=== PATIENT | male | born 1950 | race Two or more races ===

== ENCOUNTER 2022-07-29 15:02 | Observation (INO) | payer MEDICARE, OTHER ==
[2022-07-29] MEDS ORDERED: ASPIRIN 81 MG PO STA (15:43)
[2022-07-29] MEDS ORDERED: NITROGLYCERIN SL TABS 0.4 MG TAB SUBLINGUAL STA (15:43)
--- NOTE | 2022-07-29 15:47 | ED ---
General Adult HPI - General Chief complaint: Chest Pain Stated complaint: Chest Pain Time Seen by Provider: 07/29/22 15:20 Source: patient, RN notes reviewed Mode of arrival: ambulatory Limitations: no limitations - History of Present Illness Initial comments: Patient is a pleasant 72-year-old male presenting to the emergency department with concerns with chest discomfort. Onset of symptoms was a few days ago and was intermittent. Discomfort today was more persistent. Discomfort feels like tightness and rated 7/10. No associated dyspnea. Mild nausea. No diaphoresis. Patient does have history of similar symptoms years ago with heart catheter ization with only medical management at that time. - Related Data Allergies Allergy/AdvReac Type Severity Reaction Status Date / Time No Known Allergies Allergy Verified 07/29/22 15:06 Review of Systems ROS Statement: Those systems with pertinent positive or pertinent negative responses have been documented in the HPI. ROS Other: All systems not noted in ROS Statement are negative. Constitutional: Denies: fever Eyes: Denies: eye pain ENT: Denies: ear pain Respiratory: Denies: cough Cardiovascular: Reports: chest pain Endocrine: Denies: fatigue Gastrointestinal: Denies: abdominal pain Genitourinary: Denies: dysuria Musculoskeletal: Denies: back pain Skin: Denies: rash Neurological: Denies: weakness Past Medical History Past Medical History: Coronary Artery Disease (CAD), Hyperlipidemia, Hypertension History of Any Multi-Drug Resistant Organisms: None Reported Past Surgical History: Heart Catheterization Past Psychological History: No Psychological Hx Reported Smoking Status: Current every day smoker Past Alcohol Use History: None Reported Past Drug Use History: None Reported General Exam Limitations: no limitations General appearance: alert, in no apparent distress Head exam: Present: normocephalic Eye exam: Present: normal appearance Neck exam: Present: normal inspection Respiratory exam: Present: normal lung sounds bilaterally. Absent: chest wall tenderness Cardiovascular Exam: Present: regular rate, normal rhythm, normal heart sounds Expanded Peripheral pulses: 2+: Radial (R), Radial (L), Posterior Tibialis (R), Posterior Tibialis (L) GI/Abdominal exam: Present: soft. Absent: tenderness Extremities exam: Present: normal inspection. Absent: pedal edema, calf tenderness Neurological exam: Present: alert Psychiatric exam: Present: normal affect, normal mood Skin exam: Present: normal color Course Vital Signs 07/29/22 07/29/22 15:04 15:57 Temperature 97.7 F Pulse Rate 83 Pulse Rate [ [address] ] Respiratory 20 Rate Blood Pressure 116/79 O2 Sat by Pulse 96 Oximetry EKG Findings - EKG Results: EKG: interpreted by BROCKD, sinus rhythm, normal axis, normal QRS, normal ST/T Medical Decision Making - Medical Decision Making Was pt. sent in by a medical professional or institution (, PA, TAG MARKER, urgent care, hospital, or halfway...) When possible be specific @ -No Did you speak to anyone other than the patient for history (EMS, parent, family, police, friend...)? What history was obtained from this source @ -No Did you review nursing and triage notes (agree or disagree)? Why? @ -I reviewed and agree with nursing and triage notes Were old charts reviewed (outside hosp., previous admission, EMS record, old EKG, old radiological studies, urgent care reports/EKG's, halfway records)? Report findings @ -No old charts were reviewed Differential Diagnosis (chest pain, altered mental status, abdominal pain women, abdominal pain men, vaginal bleeding, weakness, fever, dyspnea, syncope, headache, dizziness, GI bleed, back pain, seizure, CVA, palpatations, mental health)? @ -Differential Chest Pain: Stable Angina, Unstable Angina, STEMI, NSTEMI Aortic Dissection, Pneumothorax, Musculoskeletal, Esophageal Spasm GERD, Cholecystitis, Pancreatitis, Zoster, this is not meant to be an all-inclusive list. EKG interpreted by me (3pts min.). @ -As above X-rays interpreted by me (1pt min.). @ -Chest x-ray shows no acute process CT interpreted by me (1pt min.). @ -None done U/S interpreted by me (1pt. min.). @ -None done What testing was considered but not performed or refused? (CT, X-rays, U/S, labs)? Why? @ -None What meds were considered but not given or refused? Why? @ -None Did you discuss the management of the patient with other professionals (tatiana sanderson i.e. , LUDWIN, TAG MARKER, lab, RT, psych nurse, social insurance analyst, sewing machine repairer helper, teacher, biological technical officer, case making machine operator)? Give summary @ -Case was discussed with practitioner Treasure Goldman, who will admit covered Dr. Green Was smoking cessation discussed for >3mins.? @ -No Was critical care preformed (if so, how long)? @ -No Were there social determinants of health that impacted care today? How? (Homelessness, low income, unemployed, alcoholism, drug addiction, transportation, low edu. Level, literacy, decrease access to med. care, long-term, rehab)? @ -No Was there de-escalation of care discussed even if they declined (Discuss DNR or withdrawal of care, Hospice)? DNR status @ -No What co-morbidities impacted this encounter? (DM, HTN, Smoking, COPD, CAD, Cancer, CVA, ARF, Chemo, Hep., AIDS, mental health diagnosis, sleep apnea, morbid obesity)? @ -None Was patient admitted / discharged? Hospital course, mention meds given and route, prescriptions, significant lab abnormalities, going to OR and other pertinent info. @ -Patient reevaluated and feels much better following nitroglycerin. Patient and family updated on results and plan. Patient will be admitted. Orders written. Undiagnosed new problem with uncertain prognosis? @ -No Drug Therapy requiring intensive monitoring for toxicity (Heparin, Nitro, Insulin, Cardizem)? @ -No Were any procedures done? @ -No Diagnosis/symptom? @ -Chest pain Acute, or Chronic, or Acute on Chronic? @ -Acute Uncomplicated (without systemic symptoms) or Complicated (systemic symptoms)? @ -default Side effects of treatment? @ -No Exacerbation, Progression, or Severe Exacerbation? @ -No Poses a threat to life or bodily function? How? (Chest pain, [place], [place], pneumonia, PE, COPD, DKA, ARF, appy, cholecystitis, CVA, Diverticulitis, Homicidal, Suicidal, threat to staff... and all critical care pts) @ -No - Lab Data Result diagrams: 07/29/22 15:29 07/29/22 15:29 Lab Results 07/29/22 07/29/22 07/29/22 Range/Units 15:29 15:29 15:29 WBC 6.8 (3.8-10.6) k/uL RBC 4.85 (4.30-5.90) m/uL Hgb 15.0 (13.0-17.5) gm/dL Hct 44.8 (39.0-53.0) % MCV 92.5 (80.0-100.0) fL MCH 31.0 (25.0-35.0) pg MCHC 33.5 (31.0-37.0) g/dL RDW 12.9 (11.5-15.5) % Plt Count 197 (150-450) k/uL MPV 7.8 Neutrophils % 71 % Lymphocytes % 19 % Monocytes % 6 % Eosinophils % 1 % Basophils % 0 % Neutrophils # 4.8 (1.3-7.7) k/uL Lymphocytes # 1.3 (1.0-4.8) k/uL Monocytes # 0.4 (0-1.0) k/uL Eosinophils # 0.1 (0-0.7) k/uL Basophils # 0.0 (0-0.2) k/uL PT 10.0 (9.0-12.0) sec INR 0.9 (<1.2) APTT 25.1 (22.0-30.0) sec Sodium 137 (137-145) mmol/L Potassium 4.0 (3.5-5.1) mmol/L Chloride 103 (98-107) mmol/L Carbon Dioxide 25 (22-30) mmol/L Anion Gap 9 mmol/L BUN 19 (9-20) mg/dL Creatinine 0.89 (0.66-1.25) mg/dL Est GFR (CKD-EPI)AfAm >90 (>60 ml/min/1.73 sqM) Est GFR (CKD-EPI)NonAf 86 (>60 ml/min/1.73 sqM) Glucose 109 H (74-99) mg/dL Calcium 9.4 (8.4-10.2) mg/dL Magnesium 2.1 (1.6-2.3) mg/dL Total Bilirubin 0.6 (0.2-1.3) mg/dL AST 26 (17-59) U/L ALT 29 (4-49) U/L Alkaline Phosphatase 84 (38-126) U/L Troponin I (0.000-0.034) ng/mL Total Protein 7.0 (6.3-8.2) g/dL Albumin 4.3 (3.5-5.0) g/dL 07/29/22 Range/Units 15:29 WBC (3.8-10.6) k/uL RBC (4.30-5.90) m/uL Hgb (13.0-17.5) gm/dL Hct (39.0-53.0) % MCV (80.0-100.0) fL MCH (25.0-35.0) pg MCHC (31.0-37.0) g/dL RDW (11.5-15.5) % Plt Count (150-450) k/uL MPV Neutrophils % % Lymphocytes % % Monocytes % % Eosinophils % % Basophils % % Neutrophils # (1.3-7.7) k/uL Lymphocytes # (1.0-4.8) k/uL Monocytes # (0-1.0) k/uL Eosinophils # (0-0.7) k/uL Basophils # (0-0.2) k/uL PT (9.0-12.0) sec INR (<1.2) APTT (22.0-30.0) sec Sodium (137-145) mmol/L Potassium (3.5-5.1) mmol/L Chloride (98-107) mmol/L Carbon Dioxide (22-30) mmol/L Anion Gap mmol/L BUN (9-20) mg/dL Creatinine (0.66-1.25) mg/dL Est GFR (CKD-EPI)AfAm (>60 ml/min/1.73 sqM) Est GFR (CKD-EPI)NonAf (>60 ml/min/1.73 sqM) Glucose (74-99) mg/dL Calcium (8.4-10.2) mg/dL Magnesium (1.6-2.3) mg/dL Total Bilirubin (0.2-1.3) mg/dL AST (17-59) U/L ALT (4-49) U/L Alkaline Phosphatase (38-126) U/L Troponin I <0.012 (0.000-0.034) ng/mL Total Protein (6.3-8.2) g/dL Albumin (3.5-5.0) g/dL Disposition Clinical Impression: Chest pain Disposition: ADMITTED IP TO THIS [facility] Is patient prescribed a controlled substance at d/c from ED?: No Referrals: Chris Green DO [Primary Care Provider] - 1-2 days Time of Disposition: 16:35
[2022-07-29 15:57] LABS: Basophils % (A) 0 %; Eosinophils # (A) 0.1 k/uL (0-0.7); Eosinophils % (A) 1 %; HCT 44.8 % (39.0-53.0); Lymphocytes # (A) 1.3 k/uL (1.0-4.8); Lymphocytes % (A) 19 %; MCHC 33.5 g/dL (31.0-37.0); MCV 92.5 fL (80.0-100.0); Mean Platelet Volume 7.8; Monocytes # (A) 0.4 k/uL (0-1.0); Monocytes % (A) 6 %; Neutrophils # (A) 4.8 k/uL (1.3-7.7); Neutrophils % (A) 71 %; Platelet Count 197 k/uL (150-450); RBC 4.85 m/uL (4.30-5.90); RDW 12.9 % (11.5-15.5); WBC 6.8 k/uL (3.8-10.6)
[2022-07-29 16:05] LABS: ALT 29 U/L (4-49); AST 26 U/L (17-59); African American GFR (CKD) >90 (>60 ml/min/1.73 sqM); Albumin 4.3 g/dL (3.5-5.0); Alkaline Phosphatase 84 U/L (38-126); Anion Gap 9 mmol/L; Blood Urea Nitrogen 19 mg/dL (9-20); Calcium 9.4 mg/dL (8.4-10.2); Carbon Dioxide 25 mmol/L (22-30); Chloride 103 mmol/L (98-107); Glucose 109 mg/dL (74-99); Magnesium 2.1 mg/dL (1.6-2.3); Non-African American GFR(CKD) 86 (>60 ml/min/1.73 sqM); Sodium 137 mmol/L (137-145); Total Bilirubin 0.6 mg/dL (0.2-1.3)
--- NOTE | 2022-07-29 16:05 | XR ---
EXAMINATION TYPE: XR chest 2V DATE OF EXAM: 07/29/2022 COMPARISON: 07/11/2013 HISTORY: Chest pain TECHNIQUE: 2 views FINDINGS: Heart and mediastinum are normal. Lungs are clear. Diaphragm is normal. Bony thorax is inta ct. There are chest leads. IMPRESSION: Normal chest. No adverse change.
[2022-07-29 16:12] LABS: INR 0.9 (<1.2); Partial Thromboplastin Time 25.1 sec (22.0-30.0)
[2022-07-29] MEDS ORDERED: NITROGLYCERIN SL TABS 0.4 MG TAB SUBLINGUAL PRN (16:36)
[2022-07-29] MEDS ORDERED: MAG HYDROX/AL HYDROX/SIMETH 30 ML, HYOSCYAMINE ELIXIR 10 ML, LIDOCAINE VISCOUS 2% 10 ML PO ONE ×3 (17:29)
[2022-07-29] MEDS: NITROGLYCERIN OINT 1 INCH/GM PACKET TOPICAL SCH (18:29)
[2022-07-29] MEDS ORDERED: ONDANSETRON 4 MG/2 ML VIAL IVP PRN (18:35)
[2022-07-29] MEDS ORDERED: HYDROcodone/APAP 5-325MG 1 EACH TAB PO PRN (18:35)
[2022-07-29] MEDS: ATORVASTATIN 40 MG TAB PO SCH (22:09)
[2022-07-30] MEDS: NITROGLYCERIN OINT 1 INCH/GM PACKET TOPICAL SCH ×5 (00:20→22:10)
--- NOTE | 2022-07-30 08:25 | P.CRDCN ---
History of Present Illness History of present illness: HISTORY OF PRESENTING ILLNESS This is a pleasant 72-year-old with past medical history significant for Coronary artery disease, hypertension, hyperlipidemia, tobacco abuse. He previously follow with Dr. Mckeon and believes he had a heart catheterization around 2 years ago however nothing and [facility]. At the time he believes he had a 60% blockage. He presents with 3 days of chest pain which is left-sided which feels sharp as well as a pressure sensation. He denies any associated nausea, diaphoresis, shortness breath. Symptoms were not occurring with any exertion and often at rest normally lasting 20-30 minutes. He did receive some nitroglycerin believes this may have helped somewhat with the pain. EKG showing normal sinus rhythm without significant ST or T wave abnormalities. Troponin is normal 3. He states he is not followed D vera Mckeon in approximately 2 years. REVIEW OF SYSTEMS At the time of my exam: CONSTITUTIONAL: Denies fever or chills. CARDIOVASCULAR: +chest pain, no shortness of breath, orthopnea, PND or palpitations. RESPIRATORY: Denies cough. GASTROINTESTINAL: Denies abdominal pain, diarrhea, constipation, nausea or vomiting. MUSCULOSKELETAL: Denies myalgias. NEUROLOGIC: Denies numbness, tingling or weakness. ENDOCRINE: Denies fatigue, weight change, polydipsia or polyurina. GENITOURINARY: Denies burning, hematuria or urgency with micturation. HEMATOLOGIC: Denies history of anemia or bleeding. PHYSICAL EXAMINATION Vital signs reviewed. CONSTITUTIONAL: No apparent distress. HEENT: Head is normocephalic. Pupils are equal, round. Sclerae anicteric. Mucous membranes of the mouth are moist. No JVD. No carotid bruit. CHEST EXAMINATION: Lungs are clear to auscultation. No chest wall tenderness is noted on palpation or with deep breathing. HEART EXAMINATION: Regular rate and rhythm. S1, S2 heard. No murmurs, gallops or rub. ABDOMEN: Soft, nontender. Positive bowel sounds. EXTREMITIES: 2+ peripheral pulses, no lower extremity edema and no calf tenderness. NEUROLOGIC EXAMINATION: Patient is awake, alert and oriented x3. ASSESSMENT 1. Atypical chest pain 2. CAD by history, questionable 60% stenosis 3. Hypertension 4. Hyperlipidemia 5. Tobacco abuse PLAN Patient's chest pain is somewhat atypical and at times reproducible however at times not. He does have significant history of CAD by history and attempt to obtain catheterization records. We will check stress test to further evaluate as well as echo. If unrevealing patient may be discharged home. Past Medical History Past Medical History: Coronary Artery Disease (CAD), CVA/TIA, Hyperlipidemia, Hypertension Additional Past Medical History / Comment(s): tia History of Any Multi-Drug Resistant Organisms: None Reported Past Surgical History: Heart Catheterization Past Anesthesia/Blood Transfusion Reactions: No Reported Reaction Past Psychological History: No Psychological Hx Reported Smoking Status: Current every day smoker Past Alcohol Use History: None Reported Past Drug Use History: None Reported Medications and Allergies Home Medications Medication Instructions Recorded Confirmed Type Aspirin EC [Ecotrin Low Dose] 81 mg PO DAILY 07/29/22 07/29/22 History Atorvastatin Calcium [Lipitor] 40 mg PO HS 07/29/22 07/29/22 History Losartan-Hctz 50-12.5 mg [Hyzaar 1 tab PO DAILY 07/29/22 07/29/22 History 50-12.5] Multivit-Min/FA/Lycopen/Lutein 1 tab PO DAILY 07/29/22 07/29/22 History [Centrum Silver Men Tablet] Allergies Allergy/AdvReac Type Severity Reaction Status Date / Time No Known Allergies Allergy Verified 07/29/22 17:03 Physical Exam Vitals: Vital Signs Temp Pulse Pulse Pulse Resp BP BP 07/30/22 02:00 97.6 F 64 18 110/64 07/29/22 20:00 97.7 F 69 18 97/63 07/29/22 17:54 97.8 F 71 18 105/62 07/29/22 17:00 97.9 F 68 19 102/74 07/29/22 16:00 64 18 117/76 07/29/22 15:57 78 07/29/22 15:19 71 13 07/29/22 15:04 97.7 F 83 20 116/79 Pulse Ox 07/30/22 02:00 95 07/29/22 20:00 96 07/29/22 17:54 95 07/29/22 17:00 96 07/29/22 16:00 96 07/29/22 15:57 07/29/22 15:19 97 07/29/22 15:04 96 Intake and Output 07/29/22 07/30/22 07/30/22 22:59 06:59 14:59 Intake Total 208 Output Total 100 Balance 108 Intake: Oral 208 Output: Urine 100 Other: # Voids 1 2 Weight 72.575 kg Results 07/29/22 15:29 07/29/22 15:29 Cardiac Enzymes 07/29/22 07/29/22 07/29/22 Range/Units 15:29 15:29 18:44 AST 26 (17-59) U/L Troponin I <0.012 <0.012 (0.000-0.034) ng/mL 07/29/22 Range/Units 20:36 AST (17-59) U/L Troponin I <0.012 (0.000-0.034) ng/mL Coagulation 07/29/22 Range/Units 15:29 PT 10.0 (9.0-12.0) sec APTT 25.1 (22.0-30.0) sec CBC 07/29/22 Range/Units 15:29 WBC 6.8 (3.8-10.6) k/uL RBC 4.85 (4.30-5.90) m/uL Hgb 15.0 (13.0-17.5) gm/dL Hct 44.8 (39.0-53.0) % Plt Count 197 (150-450) k/uL Comprehensive Metabolic Panel 07/29/22 Range/Units 15:29 Sodium 137 (137-145) mmol/L Potassium 4.0 (3.5-5.1) mmol/L Chloride 103 (98-107) mmol/L Carbon Dioxide 25 (22-30) mmol/L BUN 19 (9-20) mg/dL Creatinine 0.89 (0.66-1.25) mg/dL Glucose 109 H (74-99) mg/dL Calcium 9.4 (8.4-10.2) mg/dL AST 26 (17-59) U/L ALT 29 (4-49) U/L Alkaline Phosphatase 84 (38-126) U/L Total Protein 7.0 (6.3-8.2) g/dL Albumin 4.3 (3.5-5.0) g/dL Current Medications Generic Name Dose Route Start Last Admin Trade Name Freq PRN Reason Stop Dose Admin Hydrocodone Bitart/Acetaminophen 1 each 07/29/22 18:35 Hydrocodone/Apap 5-325mg 1 Each Tab PO Q6HR PRN Pain Aspirin 325 mg 07/30/22 09:00 07/30/22 08:13 Aspirin 325 Mg Tab PO 325 mg DAILY SAROJ Administration Atorvastatin Calcium 40 mg 07/29/22 21:00 07/29/22 22:09 Atorvastatin 40 Mg Tab PO 40 mg HS SAROJ Administration Nitroglycerin 0.4 mg 07/29/22 16:36 Nitroglycerin Sl Tabs 0.4 Mg Tab SUBLINGUAL Q5M PRN Chest Pain Nitroglycerin 1 inch 07/29/22 18:00 07/30/22 05:26 Nitroglycerin Oint 1 Inch/Gm Packet TOPICAL Not Given Q6HR [facility] Ondansetron HCl 4 mg 07/29/22 18:35 Ondansetron 4 Mg/2 Ml Vial IVP Q6HR PRN Nausea And Vomiting Intake and Output 07/29/22 07/30/22 07/30/22 22:59 06:59 14:59 Intake Total 208 Output Total 100 Balance 108 Intake: Oral 208 Output: Urine 100 Other: # Voids 1 2 Weight 72.575 kg 07/29/22 15:29 07/29/22 15:29
[2022-07-30] MEDS ORDERED: ASPIRIN 325 MG TAB PO SCH (09:00)
[2022-07-30 09:29] LABS: Chol/HDL Ratio 3.05 Ratio; LDL Cholesterol,Calculated 49.4 mg/dL (0.0-131.0)
--- NOTE | 2022-07-30 13:10 | NM ---
EXAMINATION TYPE: NM stress cardiolite complete DATE OF EXAM: 07/30/2022 COMPARISON: NONE HISTORY: Precordial chest pain TECHNIQUE: After the intravenous administration of 10.1 mCi Tc 99m Sestamibi - Rest images obtained 45 minutes post injection. The patient exercised using a GÉNESIS protocol and 1 minute prior to peak exercise was injected with 25.4 mCi Tc 99m Sestamibi - Stress images obtained 30 minutes post injecti on. FINDINGS: Targeted heart rate was achieved during performance of the study. Review of stress and rest SPECT yasmine ges demonstrates a small area of reversible ischemia involving the apical septal wall. Surrounding ar eas of fixed defect noted. Gated analysis shows normal wall motion with an estimated left ventricular ejection fraction of 69 %. IMPRESSION: small area of reversible ischemia involving the apical septal wall.
--- NOTE | 2022-07-30 13:16 | CA ---
Transthoracic Echo Report Name: Juliocesar Anton Age: 72 Gender: M : 1950 Exam Date: 07/30/2022 09:15 Exam Location: [place] [facility] Ht (in): 64 Wt (lb): 160 Ordering Physician: Orestes Lawson DO ([email or web address]) Attending/Referring Phys: [facility] Nurse Nelli Devlin RDCS Procedure CPT: Indications: re: CP Cardiac Hx: Technical Quality: Good Contrast 1: Total Dose (mL): Contrast 2: Total Dose (mL): MEASUREMENTS (Male / Female) Normal Values 2D ECHO LV Diastolic Diameter PLAX 4.6 cm 4.2 - 5.9 / 3.9 - 5.3 cm LV Systolic Diameter PLAX 3.3 cm IVS Diastolic Thickness 1.1 cm 0.6 - 1.0 / 0.6 - 0.9 cm LVPW Diastolic Thickness 1.2 cm 0.6 - 1.0 / 0.6 - 0.9 cm LV Relative Wall Thickness 0.5 RV Internal Dim ED PLAX 3.4 cm LA Systolic Diameter LX 3.2 cm 3.0 - 4.0 / 2.7 - 3.8 cm LV Diastolic Volume MOD BP 48.4 cm??? 67 - 155 / 56 - 104 cm??? LV Systolic Volume MOD BP 29.3 cm??? 22 - 58 / 19 - 49 cm??? LV Ejection Fraction MOD BP 39.6 % >= 55 % LV Diastolic Volume MOD 4C 55.0 cm??? LV Systolic Volume MOD 4C 28.5 cm??? LV Ejection Fraction MOD 4C 48.2 % LV Diastolic Length 4C 6.7 cm LV Systolic Length 4C 6.0 cm LV Diastolic Volume MOD 2C 41.6 cm??? LV Systolic Volume MOD 2C 26.1 cm??? LV Ejection Fraction MOD 2C 37.2 % LV Diastolic Length 2C 6.5 cm LV Systolic Length 2C 5.1 cm LA Volume 41.4 cm??? 18 - 58 / 22 - 52 cm??? M-MODE Aortic Root Diameter MM 3.6 cm MV E Point Septal Separation 0.4 cm AV Cusp Separation MM 2.2 cm DOPPLER AV Peak Velocity 121.5 cm/s AV Peak Gradient 5.9 mmHg MV E' Velocity 5.2 cm/s TR Peak Velocity 216.4 cm/s TR Peak Gradient 18.7 mmHg Right Ventricular Systolic Press 23.7 mmHg FINDINGS Left Ventricle Left ventricular ejection fraction is estimated at 50 %. Left ventricular cavity size normal. Borderline left ventricular hypertrophy. Mildly reduced global left ventricular systolic function. Right Ventricle Mild right ventricular dilatation. Right ventricular systolic pressure within normal limits. Right Atrium Right atrium not well visualized. Left Atrium Normal left atrial size. Mitral Valve Structurally normal mitral valve. No mitral stenosis, regurgitation or prolapse. Aortic Valve Trileaflet aortic valve. Tricuspid Valve Structurally normal tricuspid valve. Mild tricuspid regurgitation. Pulmonic Valve Structurally normal pulmonic valve. No pulmonic regurgitation. Pericardium Normal pericardium. No pericardial effusion. Aorta Normal size aortic root and proximal ascending aorta. CONCLUSIONS Left ventricular ejection fraction 50% Borderline LVH No mitral regurgitation Mild tricuspid regurgitation No pericardial effusion Previewed by: Dr. Orestes Lawson DO (Electronically Signed) Final Date: 30 July 2022 13:15
[2022-07-30] MEDS ORDERED: ALPRAZolam 0.5 MG TAB PO PRN ×2 (13:26→13:29)
[2022-07-30] MEDS ORDERED: ALPRAZolam 0.25 MG TAB PO PRN ×2 (13:26→13:29)
[2022-07-30] MEDS ORDERED: ATORVASTATIN 80 MG TAB PO STA (13:29)
[2022-07-30] MEDS ORDERED: NITROGLYCERIN SL TABS 0.4 MG TAB SUBLINGUAL PRN (13:29)
[2022-07-30] MEDS ORDERED: ASPIRIN 325 MG TAB PO STA (13:29)
--- NOTE | 2022-07-30 13:31 | P.HPIM ---
History of Present Illness H&P Date: 07/30/22 History of present illness; patient is a 72-year-old gentleman with past medical history significant for coronary artery disease, hypertension, hyperlipidemia who presented to the ER because of chest pain. Patient stated that chest pain started a few days ago and was intermittent in nature. Patient describes chest pain as pressure like in sensation, central in location, 7/10 intensity, nonradiating, not associated with any nausea or vomiting. Patient denies having shortness of breath associated with chest pain. Patient stated that today this chest pain become more intense and he decided to come to the ER. Initial lab work done showed white count of 6.8, hemoglobin of 15, sodium 137, potassium 4, chloride 103, carbon dioxide 25, troponin was normal. Patient's EKG did not show any acute ST segment changes, patient was admitted for further evaluation and treatment REVIEW OF SYSTEMS: CONSTITUTIONAL: No fever, no malaise, no fatigue. HEENT: No recent visual problems or hearing problems. Denied any sore throat. CARDIOVASCULAR: As mentioned in HPI PULMONARY: No shortness of breath, no cough, no hemoptysis. GASTROINTESTINAL: No diarrhea, no nausea, no vomiting, no abdominal pain. NEUROLOGICAL: No headaches, no weakness, no numbness. HEMATOLOGICAL: Denies any bleeding or petechiae. GENITOURINARY: Denies any burning micturition, frequency, or urgency. MUSCULOSKELETAL/RHEUMATOLOGICAL: Denies any joint pain, swelling, or any muscle pain. ENDOCRINE: Denies any polyuria or polydipsia. The rest of the 14-point review of systems is negative. PHYSICAL EXAMINATION: GENERAL: The patient is alert and oriented x3, not in any acute distress. Well developed, well nourished. HEENT: Pupils are round and equally reacting to light. EOMI. No scleral icterus. No conjunctival pallor. Normocephalic, atraumatic. No pharyngeal erythema. No thyromegaly. CARDIOVASCULAR: S1 and S2 present. No murmurs, rubs, or gallops. PULMONARY: Chest is clear to auscultation, no wheezing or crackles. ABDOMEN: Soft, nontender, nondistended, normoactive bowel sounds. No palpable organomegaly. MUSCULOSKELETAL: No joint swelling or deformity. EXTREMITIES: No cyanosis, clubbing, or pedal edema. NEUROLOGICAL: Gross neurological examination did not reveal any focal deficits. SKIN: No rashes. Assessment and plan chest pain CAD by history, questionable 60% stenosis Hypertension Hyperlipidemia Tobacco abuse PLAN Monitor vital signs Continue telemetry monitoring Monitor CBC Monitor CMP Trend troponins. Resume home meds Cardiology consulted.: Past Medical History Past Medical History: Coronary Artery Disease (CAD), CVA/TIA, Hyperlipidemia, Hypertension Additional Past Medical History / Comment(s): tia History of Any Multi-Drug Resistant Organisms: None Reported Past Surgical History: Heart Catheterization Past Anesthesia/Blood Transfusion Reactions: No Reported Reaction Past Psychological History: No Psychological Hx Reported Smoking Status: Current every day smoker Past Alcohol Use History: None Reported Past Drug Use History: None Reported Medications and Allergies Home Medications Medication Instructions Recorded Confirmed Type Aspirin EC [Ecotrin Low Dose] 81 mg PO DAILY 07/29/22 07/29/22 History Atorvastatin Calcium [Lipitor] 40 mg PO HS 07/29/22 07/29/22 History Losartan-Hctz 50-12.5 mg [Hyzaar 1 tab PO DAILY 07/29/22 07/29/22 History 50-12.5] Multivit-Min/FA/Lycopen/Lutein 1 tab PO DAILY 07/29/22 07/29/22 History [Centrum Silver Men Tablet] Allergies Allergy/AdvReac Type Severity Reaction Status Date / Time No Known Allergies Allergy Verified 07/29/22 17:03 Physical Exam Vitals: Vital Signs Temp Pulse Pulse Pulse Resp BP BP 07/30/22 07:00 98.0 F 57 L 16 103/65 07/30/22 02:00 97.6 F 64 18 110/64 07/29/22 20:00 97.7 F 69 18 97/63 07/29/22 17:54 97.8 F 71 18 105/62 07/29/22 17:00 97.9 F 68 19 102/74 07/29/22 16:00 64 18 117/76 07/29/22 15:57 78 07/29/22 15:19 71 13 07/29/22 15:04 97.7 F 83 20 116/79 Pulse Ox 07/30/22 07:00 95 07/30/22 02:00 95 07/29/22 20:00 96 07/29/22 17:54 95 07/29/22 17:00 96 07/29/22 16:00 96 07/29/22 15:57 07/29/22 15:19 97 07/29/22 15:04 96 Intake and Output 07/29/22 07/30/22 07/30/22 22:59 06:59 14:59 Intake Total 208 Output Total 100 Balance 108 Intake: Oral 208 Output: Urine 100 Other: # Voids 1 2 Weight 72.575 kg Results CBC & Chem 7: 07/29/22 15:29 07/29/22 15:29 Labs: Abnormal Lab Results - Last 24 Hours (Table) 07/29/22 07/30/22 Range/Units 15:29 05:54 Glucose 109 H (74-99) mg/dL Triglycerides 163.00 H (0.00-149.00) mg/dL Thrombosis Risk Factor Assmnt - Choose All That Apply Any of the Below Risk Factors Present?: Yes Each Factor Represents 1 point: Obesity (BMI >25) Other Risk Factors: Yes Each Risk Factor Represents 2 Points: Age 61-74 years Thrombosis Risk Factor Assessment Total Risk Factor Score: 3 Thrombosis Risk Factor Assessment Level: Moderate Risk
[2022-07-30] MEDS: SODIUM CHLORIDE 0.9% 1,000 ML IV SCH (15:20)
[2022-07-30] MEDS: ATORVASTATIN 40 MG TAB PO SCH (22:09)
[2022-07-31 03:39] VITALS: RESP 16
[2022-07-31] MEDS ORDERED: ATORVASTATIN 80 MG TAB PO ONE (06:00)
[2022-07-31] MEDS ORDERED: ASPIRIN 325 MG TAB PO ONE (06:00)
[2022-07-31] MEDS: NITROGLYCERIN OINT 1 INCH/GM PACKET TOPICAL SCH (06:09)
[2022-07-31] MEDS: SODIUM CHLORIDE 0.9% 1,000 ML IV SCH (06:26)
[2022-07-31] MEDS ORDERED: HEPARIN SODIUM,PORCINE 10,000 UNIT in SODIUM CHLORIDE 0.9% 1,000 ML IRRIGATION PRN ×4 (07:00)
[2022-07-31] MEDS ORDERED: HEPARIN SODIUM,PORCINE 2,500 UNIT in SODIUM CHLORIDE 0.9% 250 ML IRRIGATION PRN ×4 (07:00)
[2022-07-31] MEDS ORDERED: VERAPAMIL 2.5 MG/ML 2 ML AMP ONE (08:30)
[2022-07-31] MEDS ORDERED: HEPARIN SODIUM 1,000 UN/ML (10ML VL) ONE (08:31)
[2022-07-31] MEDS ORDERED: ASPIRIN 81 MG PO SCH (09:00)
[2022-07-31] MEDS ORDERED: IV FLUID CONTINUATION 1,000 ML IV ONE (09:37)
[2022-07-31] MEDS ORDERED: MIDAZOLAM 2 MG/2 ML VIAL IV ONE (10:05)
[2022-07-31] MEDS ORDERED: LIDOCAINE 1% INJ 10MG/ML (5 ML VIAL-PF) SQ ONE (10:10)
[2022-07-31] MEDS ORDERED: VERAPAMIL SYRINGE (5 MG/10 ML) INTRAARTER ONE (10:11)
[2022-07-31] MEDS ORDERED: HEPARIN SODIUM 1,000 UN/ML (10ML VL) IV ONE ×2 (10:11)
[2022-07-31] MEDS ORDERED: SODIUM CHLORIDE 0.9% 1,000 ML IV SCH (10:30)
[2022-07-31] MEDS ORDERED: IOPAMIDOL-370 100ML BTL INJ ONE (10:32)
--- NOTE | 2022-07-31 10:59 | P.PN ---
Subjective Progress Note Date: 07/31/22 HISTORY OF PRESENT ILLNESS: This is a pleasant 72-year-old with past medical history significant for Coronary artery disease, hypertension, hyperlipidemia, tobacco abuse. He previo usly follow with Dr. Mckeon and believes he had a heart catheterization around 2 years ago however nothing and [facility] system or [facility] system. At the time he believes he had a 60% blockage. He presents with 3 days of chest pain which is left-sided which feels sharp as well as a pressure sensation. He denies any associated nausea, diaphoresis, shortness breath. Symptoms were not occurring with any exertion and often at rest normally lasting 20-30 minutes. He did receive some nitroglycerin believes this may have helped somewhat with the pain. EKG showing normal sinus rhythm without significant ST or T wave abnormalities. Troponin is normal 3. He states he is not followed Dr. Mckeon in approximately 2 years. 07/31/2022 Patient examined this morning at the bedside. Patient denies any further episodes of chest pain or pressure. He denies shortness of breath. Patient underwent Cardiolite stress test yesterday revealing small area of reversible ischemia involving the apical septal wall. Echocardiogram completed revealing ejection fraction 50% with mild TR. PHYSICAL EXAM: VITAL SIGNS: Reviewed. GENERAL: Well-developed in no acute distress. NECK: Supple. No JVD or thyromegaly LUNGS: Respirations even and unlabored. Lungs essentially clear to auscultation bilaterally. HEART: Regular rate and rhythm. S1 and S2 heard. EXTREMITIES: Normal range of motion. No clubbing or cyanosis. Peripheral pulses intact. No lower extremity edema ASSESSMENT: 1. Atypical chest pain status post cardiology stress test revealing small area of reversible ischemia involving apical septal wall 2. CAD by history, questionable 60% stenosis 3. Hypertension 4. Hyperlipidemia 5. Tobacco abuse PLAN: Continue current cardiac medications Add aspirin 81 mg daily Patient to undergo cardiac catheterization today with Dr. Mckeon Further recommendations pending patient's course Nurse practitioner note has been reviewed by physician. Signing provider agrees with the documented findings, assessment, and plan of care. Objective - Vital Signs Vital signs: Vital Signs Temp 98.0 F 07/31/22 07:00 Pulse 61 07/31/22 07:00 Resp 16 07/31/22 07:00 BP 108/71 07/31/22 07:00 Pulse Ox 96 07/31/22 07:00 FiO2 Intake & Output 07/30/22 07/31/22 07/31/22 18:59 06:59 18:59 Intake Total 118 300 Output Total 100 Balance 118 -100 300 Intake: IV 300 Oral 118 Output: Urine 100 Other: # Voids 1 1 - Labs CBC & Chem 7: 07/29/22 15:29 07/29/22 15:29
--- NOTE | 2022-07-31 11:41 | CA ---
Exercise Stress Test Report Name: Juliocesar Anton Exam Date: 07/30/2022 10:39 Exam Location: [facility] Ht (in): 64 Wt (lb): 160 BSA: 1.78 Ordering Phys: Orestes Lawson DO Referring Phys: ,, Technologist: Poncho James Age: 72 Gender: M : 1950 Procedure CPT: Indications: Reflex order-Stress test ICD-10 Codes: Patient History: Medications: see chart Meds past 24 hrs: Pretest Chest Pain: STRESS TEST Clay Protocol Exercise Duration (min:sec): 06:[address] Depressions (mm): Angina Score: Baez Score: Resting HR (bpm): 75 Peak HR (bpm): 135 Resting BP (mmHg): 105 / 75 Peak BP (mmHg): 156 / 70 MPHR: 149 Target HR: 127 % MPHR: 91 METS: 7.3 Total Dose: Peak Dose: Atropine: Double Product: 13111 BP Response: Stress Termination: Reached target heart rate Stress Symptoms: no symptoms Stress Summary: ECG ANALYSIS Resting ECG: Stress ECG: CONCLUSIONS Patient underwent exercise stress Cardiolite with a Clay protocol treadmill stress test. Patient exercised into Stage 2 for a total of 6 minutes reaching a total of 7.3 METS. Patient's maximum heart rate was 135 which represented 90 % age- predicted maximum heart rate. Stress EKG findings: At baseline patient's EKG showed normal sinus rhythm, normal axis, poor R-wave progression, no significant ST or T wave abnormalities. At peak exercise, EKG showed minimal nondiagnostic 0.[address] depressions in the inferior leads. Conclusions: 1. Normal EKG response to exercise without evidence of inducible ischemia. 2. Fair exercise capacity. 3. Nuclear portion to be reported separately. Dr. Orestes Lawson DO (Electronically Signed) Final Date: 31 July 2022 11:41
--- NOTE | 2022-07-31 13:57 | P.DS ---
Providers Date of admission: 07/29/22 16:36 Expected date of discharge: 07/31/22 Attending physician: Emmett Adler Consults: 07/29/22 16:36 Consult Physician Urgent Consulting Provider: Jun Rand Consult Reason/Comments: cp Do you want consulting provider notified?: Yes Primary care physician: Chris [facility] Course: Discharge diagnoses; chest pain CAD by history, questionable 60% stenosis Hypertension Hyperlipidemia Tobacco abuse Hospital course; patient is a 72-year-old gentleman with past medical history significant for coronary artery disease, hypertension, hyperlipidemia who presented to the ER because of chest pain. Patient stated that chest pain started a few days ago and was intermittent in nature. Patient describes chest pain as pressure like in sensation, central in location, 7/10 intensity, nonradiating, not associated with any nausea or vomiting. Patient denies having shortness of breath associated with chest pain. Patient stated that today this chest pain become more intense and he decided to come to the ER. Initial lab work done showed white count of 6.8, hemoglobin of 15, sodium 137, potassium 4, chloride 103, carbon dioxide 25, troponin was normal. Patient's EKG did not show any acute ST segment changes, patient was admitted for further evaluation and treatment Cardiology consulted, they recommended doing stress test. 07/31/2022 Patient examined this morning at the bedside. Patient denies any further episodes of chest pain or pressure. He denies shortness of breath. Patient underwent Cardiolite stress test yesterday revealing small area of reversible ischemia involving the apical septal wall. Echocardiogram completed revealing ejection fraction 50% with mild TR. Patient went for cardiac cath today, cardiac cath was done, did not have significant blockages for any intervention with stent placement, detailed report of cardiac cath is still not back. Cardiology cleared the patient for discharge with medical management With continuation of current medications. PHYSICAL EXAMINATION: GENERAL: The patient is alert and oriented x3, not in any acute distress. Well developed, well nourished. HEENT: Pupils are round and equally reacting to light. EOMI. No scleral icterus. No conjunctival pallor. Normocephalic, atraumatic. No pharyngeal erythema. No thyromegaly. CARDIOVASCULAR: S1 and S2 present. No murmurs, rubs, or gallops. PULMONARY: Chest is clear to auscultation, no wheezing or crackles. ABDOMEN: Soft, nontender, nondistended, normoactive bowel sounds. No palpable organomegaly. MUSCULOSKELETAL: No joint swelling or deformity. EXTREMITIES: No cyanosis, clubbing, or pedal edema. NEUROLOGICAL: Gross neurological examination did not reveal any focal deficits. SKIN: No rashes. Patient Condition at Discharge: Stable Plan - Discharge Summary Discharge Rx Participant: No New Discharge Prescriptions: New Metoprolol Tartrate [Lopressor] 12.5 mg PO DAILY #30 tab Continue Losartan-Hctz 50-12.5 mg [Hyzaar 50-12.5] 1 tab PO DAILY Aspirin EC [Ecotrin Low Dose] 81 mg PO DAILY Multivit-Min/FA/Lycopen/Lutein [Centrum Silver Men Tablet] 1 tab PO DAILY Atorvastatin Calcium [Lipitor] 40 mg PO HS Discharge Medication List Aspirin EC [Ecotrin Low Dose] 81 mg PO DAILY 07/29/22 [History] Atorvastatin Calcium [Lipitor] 40 mg PO HS 07/29/22 [History] Losartan-Hctz 50-12.5 mg [Hyzaar 50-12.5] 1 tab PO DAILY 07/29/22 [History] Multivit-Min/FA/Lycopen/Lutein [Centrum Silver Men Tablet] 1 tab PO DAILY 07/29/22 [History] Metoprolol Tartrate [Lopressor] 12.5 mg PO DAILY #30 tab 07/31/22 [Rx] Follow up Appointment(s)/Referral(s): Kings Mckeon MD [STAFF PHYSICIAN] - 08/09/22 1:30 pm Chris Green DO [Primary Care Provider] - 1-2 days Discharge Disposition: HOME SELF-CARE
[2022-07-31] MEDS ORDERED: RX INFO: IV CONTRAST WAS GIVEN 1 EACH MISC MISCELLANE PRN (14:00)
[2022-07-31] MEDS ORDERED: ATROPINE SULFATE 0.1 MG/ML 10ML SYRINGE IV PRN (14:00)
[2022-07-31] MEDS ORDERED: ZOLPIDEM 5 MG TAB PO PRN (14:00)
[2022-07-31] MEDS ORDERED: MAG HYDROX/AL HYDROX/SIMETH 30 ML CUP PO PRN (14:00)
[2022-07-31 14:56] VITALS: TEMP 98.1
[2022-07-31 15:19] VITALS: BP 108/67; PULSE 70
[2022-07-31] MEDS ORDERED: LOSARTAN 25 MG TAB PO SCH (21:00)
[2022-07-31] MEDS ORDERED: ATORVASTATIN 80 MG TAB PO SCH (21:00)
--- NOTE | 2022-07-31 22:57 | CC ---
CARDIAC CATHETERIZATION REPORT PROCEDURES PERFORMED: Left heart catheterization, coronary angiography. PERFORMED BY: Dr. Lyudmila Mckeon. Moderate conscious sedation time was 25 minutes. The patient was administered Versed. Oxygen saturation, hemodynamics, and EKG were monitored closely. CLINICAL INFORMATION: Mr. Juliocesar Anton is a 72-year-old gentleman with history of hypertension, hyperlipidemia, and unremarkable cardiac cath 9 years ago, came to the hospital with chest pain suggestive of angina with some relief with nitroglycerin and had a positive stress test with septal ischemia. Therefore, he was advised cardiac cath after due discussion. PROCEDURE NOTE: Under local anesthesia and strict aseptic precautions, a 6-Argentine introducer placed in the right radial artery. Using JL3.5 and JR4 catheters, I performed coronary angiography, and then I chose a 3.0 left catheter to get better injection of the proximal RCA. LV pressures were checked with the right catheter, but LV-gram was not performed. The sheath was taken out and TR band applied as per protocol with saturation of the fingers of the right hand of 95%. The patient tolerated procedure well without complication. Findings were discussed with the patient and his sister. CARDIAC CATHETERIZATION FINDINGS: The left ventricular end-diastolic pressure was about 12 to 13 mmHg without any gradient across aortic valve. Right coronary artery dominant vessel, no significant disease. Mild 35% narrowing, distally bifurcates into multiple branches including PDA and PLV. No significant disease. LEFT MAIN CORONARY ARTERY: Short, patent, disease-free vessel that bifurcates into LAD and circumflex. LEFT ANTERIOR DESCENDING CORONARY ARTERY: There is about a 35% to 40% ostial lesion unchanged from before and the LAD then gives off septal and diagonal branches, runs all the way towards the apex, supplies a fair amount of myocardium. No other significant areas of narrowing were noted. Ostial LAD has about 35%, unchanged from before. LEFT POSTERIOR CIRCUMFLEX CORONARY ARTERY: Nondominant vessel. Good caliber and good distribution, gives off 2 obtuse marginal branches, and then continues as a posterolateral branch. Minor irregularities. No significant disease. FINAL IMPRESSION: This patient has a right-dominant system. Normal filling pressures, 40% ostial proximal LAD, unchanged from before, about 9 years ago comparison. About 30% to 35% mid RCA disease. No significant disease in the circumflex. RECOMMENDATIONS: Findings were discussed with the patient and family. Advised to continue medical therapy with risk factor modification. The patient can be discharged later on today and I will see him in the office in 1 week. MMODL / IJN: [id number] /
[2022-08-01] MEDS ORDERED: CLOPIDOGREL 75 MG TAB PO SCH (09:00)
[2022-08-01] MEDS ORDERED: METOPROLOL TARTRATE 12.5 MG TAB PO SCH (09:00)
[2022-08-01] MEDS ORDERED: LOSARTAN 50 MG TAB PO SCH (21:00)
== END 2022-07-31 17:46 | disposition home or self-care (01) ==
LOC: EC 15:02 → 6NMEDSUR 16:36
PROVIDERS: ADMIT Internal Medicine; ATTEND Internal Medicine
DX: I25.110 Atherosclerotic heart disease of native coronary artery with unstable angina pectoris (principal); I10 Essential (primary) hypertension; E78.5 Hyperlipidemia, unspecified; F17.200 Nicotine dependence, unspecified, uncomplicated; E66.9 Obesity, unspecified; Z68.27 Body mass index [BMI] 27.0-27.9, adult; Z86.73 Personal history of transient ischemic attack (TIA), and cerebral infarction without residual deficits; Z79.82 Long term (current) use of aspirin; Z79.899 Other long term (current) drug therapy
CPT/HCPCS: 99285; 36415; 93005; 93017; 93306; 93458; 80061; 80053; 83735; 84484; 85025; 85610; 85730; 71046; 78452; G0378 ×3; C1769; C1894; C1887; A9500; J2250; J2001; J1644; Q9967

== ENCOUNTER 2024-11-13 16:32 | Observation (INO) | payer MEDICARE ==
--- NOTE | 2024-11-13 17:03 | XR ---
EXAMINATION TYPE: XR chest 2V DATE OF EXAM: 11/13/2024 4:58 PM COMPARISON: Chest radiographs from 07/29/2022 TECHNIQUE: XR chest 2V Frontal and lateral views of the chest. CLINICAL INDICATION:Male, 74 years old with history of Chest Pain; FINDINGS: Lungs/Pleura: There is no evidence of pleural effusion, focal consolidation, or pneumothorax. Pulmonary vascularity: Unremarkable. Heart/mediastinum: Cardiomediastinal silhouette is unremarkable. Musculoskeletal: Multiple level degenerative disc disease changes seen throughout the spine. IMPRESSION: No acute cardiopulmonary disease/process. [facility], , 11/13/2024 5:01 PM
--- NOTE | 2024-11-13 17:40 | ED ---
General Adult HPI - General Chief complaint: Chest Pain Stated complaint: Chest pain Time Seen by Provider: 11/13/24 17:19 Source: patient, RN notes reviewed Mode of arrival: ambulatory Limitations: no limitations - History of Present Illness Initial comments: 74-year-old male presents to the emergency department for evaluation of chest discomfort. Patient states that this started at 3 AM today. He notes that initially the pain was an intense burning sensation. He states that at that time he felt diaphoretic. He reports that it did subside but he does have some residual burning discomfort on the left side of his chest. He denies any radiation of the pain. He does endorse a smoking history. He has followed up with Dr. Mckeon in the past and is scheduled to see Dr. Lawson on Saturday. - Related Data Home Medications Medication Instructions Recorded Confirmed Aspirin EC [Ecotrin Low Dose] 81 mg PO DAILY 07/29/22 11/13/24 Atorvastatin Calcium [Lipitor] 40 mg PO DAILY 07/29/22 11/13/24 Losartan-Hctz 50-12.5 mg [Hyzaar 1 tab PO DAILY 07/29/22 11/13/24 50-12.5] Allergies Allergy/AdvReac Type Severity Reaction Status Date / Time No Known Allergies Allergy Verified 11/13/24 19:37 Review of Systems ROS Statement: Those systems with pertinent positive or pertinent negative responses have been documented in the HPI. ROS Other: All systems not noted in ROS Statement are negative. Past Medical History Past Medical History: Coronary Artery Disease (CAD), CVA/TIA, Hyperlipidemia, Hypertension Additional Past Medical History / Comment(s): tia History of Any Multi-Drug Resistant Organisms: None Reported Past Surgical History: Heart Catheterization Past Anesthesia/Blood Transfusion Reactions: No Reported Reaction Past Psychological History: No Psychological Hx Reported Smoking Status: Former smoker Past Alcohol Use History: None Reported Past Drug Use History: None Reported General Exam Limitations: no limitations General appearance: alert, in no apparent distress Head exam: Present: atraumatic, normocephalic, normal inspection Eye exam: Present: normal appearance, PERRL, EOMI. Absent: scleral icterus, conjunctival injection, periorbital swelling ENT exam: Present: normal exam, mucous membranes moist Respiratory exam: Present: normal lung sounds bilaterally. Absent: respiratory distress, wheezes, rales, rhonchi, stridor Cardiovascular Exam: Present: regular rate, normal rhythm, normal heart sounds. Absent: systolic murmur, diastolic murmur, rubs, gallop, clicks Extremities exam: Present: normal inspection, full ROM, normal capillary refill. Absent: tenderness, pedal edema, joint swelling, calf tenderness Neurological exam: Present: alert, oriented X3 Psychiatric exam: Present: normal affect, normal mood Skin exam: Present: warm, dry, intact, normal color. Absent: rash Course Vital Signs 11/13/24 11/13/24 11/13/24 16:33 17:40 18:00 Temperature 97.9 F Pulse Rate 77 64 Pulse Rate [ 65 Left Pulse Oximetery] Respiratory 20 18 Rate Blood Pressure 110/74 94/68 O2 Sat by Pulse 99 97 Oximetry 11/13/24 11/13/24 19:10 20:21 Temperature 98.1 F Pulse Rate 68 78 Pulse Rate [ Left Pulse Oximetery] Respiratory 18 19 Rate Blood Pressure 99/70 114/81 O2 Sat by Pulse 95 93 L Oximetry Medical Decision Making - Medical Decision Making Was pt. sent in by a medical professional or institution (, PA, DETAIL DRAFTER, urgent care, hospital, or [facility]...) When possible be specific @ -No Did you speak to anyone other than the patient for history (EMS, parent, family, police, friend...)? What history was obtained from this source @ -No Did you review nursing and triage notes (agree or disagree)? Why? @ -I reviewed and agree with nursing and triage notes Were old charts reviewed (outside hosp., previous admission, EMS record, old EKG, old radiological studies, urgent care reports/EKG's, [facility] records)? Report findings @ -No old charts were reviewed Differential Diagnosis (chest pain, altered mental status, abdominal pain women, abdominal pain men, vaginal bleeding, weakness, fever, dyspnea, syncope, headache, dizziness, GI bleed, back pain, seizure, CVA, palpatations, mental health, musculoskeletal)? @ -Differential Chest Pain: Stable Angina, Unstable Angina, STEMI, NSTEMI Aortic Dissection, Pneumothorax, Musculoskeletal, Esophageal Spasm GERD, Cholecystitis, Pancreatitis, Zoster, this is not meant to be an all-inclusive list. EKG interpreted by me (3pts min.). @ -EKG@1711 shows sinus rhythm rate of 72, [place] 203, QRS 94, QTQTc 824031 X-rays interpreted by me (1pt min.). @ -Chest x-ray reveals no acute process CT interpreted by me (1pt min.). @ -None done U/S interpreted by me (1pt. min.). @ -None done What testing was considered but not performed or refused? (CT, X-rays, U/S, labs)? Why? @ -None What meds were considered but not given or refused? Why? @ -None Did you discuss the management of the patient with other professionals (professionals i.e. , PA, DETAIL DRAFTER, lab, RT, psych nurse, social work case manager, repair department supervisor, teacher, correctional officer, casework manager)? Give summary @ -Management was discussed with taya who was accepting of the admission. Was smoking cessation discussed for >3mins.? @ -No Was critical care preformed (if so, how long)? @ -No Were there social determinants of health that impacted care today? How? (Homel essness, low income, unemployed, alcoholism, drug addiction, transportation, low edu. Level, literacy, decrease access to med. care, senior care, rehab)? @ -No Was there de-escalation of care discussed even if they declined (Discuss DNR or withdrawal of care, Hospice)? DNR status @ -No What co-morbidities impacted this encounter? (DM, HTN, Smoking, COPD, CAD, Cancer, CVA, ARF, Chemo, Hep., AIDS, mental health diagnosis, sleep apnea, morbid obesity)? @ -None Was patient admitted / discharged? Hospital course, mention meds given and route, prescriptions, significant lab abnormalities, going to OR and other pertinent info. @ -Admitted. Patient presented emergency department for evaluation of chest pain. Laboratory studies obtainedRevealing no significant leukocytosis, hemoglobin 14.4; CMP nonactionable, negative initial troponin. Chest x-ray reveals no acute process. Patient will be admitted for observation for chest pain with serial troponins and cardiology consultation. Case was discussed with taya who was accepting of the admission. Case discussed with Dr. Johnson. Undiagnosed new problem with uncertain prognosis? @ -No Drug Therapy requiring intensive monitoring for toxicity (Heparin, Nitro, Insulin, Cardizem)? @ -No Were any procedures done? @ -No Diagnosis/symptom? @ -Chest pain Acute, or Chronic, or Acute on Chronic? @ -Acute Uncomplicated (without systemic symptoms) or Complicated (systemic symptoms)? @ -Uncomplicated Side effects of treatment? @ -No Exacerbation, Progression, or Severe Exacerbation? @ -No Poses a threat to life or bodily function? How? (Chest pain, USA, NC, pneumonia, PE, COPD, DKA, ARF, appy, cholecystitis, CVA, Diverticulitis, Homicidal, Suicidal, threat to staff... and all critical care pts) @ -No - Lab Data Result diagrams: 11/13/24 17:48 11/13/24 17:48 Lab Results 11/13/24 11/13/24 11/13/24 Range/Units 17:48 17:48 17:48 WBC 7.86 (4.50-10.00) 10*3/uL RBC 4.63 (4.40-5.60) 10*6/uL Hgb 14.4 (13.0-17.0) g/dL Hct 42.6 (39.6-50.0) % MCV 92.0 (80.0-97.0) fL MCH 31.1 (27.0-32.0) pg MCHC 33.8 (32.0-37.0) g/dL Plt Count 208 (140-440) 10*3/uL MPV 9.9 (9.5-12.2) fL Immature Gran % (Auto) 0.1 % Neutrophils % 71.4 % Lymphocytes % 19.2 % Monocytes % 8.1 % Eosinophils % 0.6 % Basophils % 0.6 % Immature Gran # 0.01 (0.00-0.04) 10*3/uL Neutrophils # 5.60 (1.80-7.70) 10*3/uL Lymphocytes # 1.51 (0.90-5.00) 10*3/uL Monocytes # 0.64 (0.20-1.00) 10*3/uL Eosinophils # 0.05 (0.04-0.35) 10*3/uL Basophils # 0.05 (0.00-0.10) 10*3/uL PT 11.0 (10.0-12.5) sec INR 1.0 (<1.2) APTT 25.4 (22.0-30.0) sec Sodium 140 (137-145) mmol/L Potassium 3.9 (3.5-5.1) mmol/L Chloride 101 (98-107) mmol/L Carbon Dioxide 27 (22-30) mmol/L Anion Gap 12 mmol/L BUN 20 (9-20) mg/dL Creatinine 0.80 (0.66-1.25) mg/dL Est GFR (CKD-EPI)AfAm >90 (>60 ml/min/1.73 sqM) Est GFR (CKD-EPI)NonAf 89 (>60 ml/min/1.73 sqM) Glucose 113 H (74-99) mg/dL Calcium 10.0 (8.4-10.2) mg/dL Magnesium 2.0 (1.6-2.3) mg/dL Total Bilirubin 0.7 (0.2-1.3) mg/dL AST 23 (17-59) U/L ALT 18 (4-49) U/L Alkaline Phosphatase 83 (38-126) U/L Troponin I (0.000-0.034) ng/mL Total Protein 6.7 (6.3-8.2) g/dL Albumin 4.3 (3.5-5.0) g/dL 11/13/24 Range/Units 17:48 WBC (4.50-10.00) 10*3/uL RBC (4.40-5.60) 10*6/uL Hgb (13.0-17.0) g/dL Hct (39.6-50.0) % MCV (80.0-97.0) fL MCH (27.0-32.0) pg MCHC (32.0-37.0) g/dL Plt Count (140-440) 10*3/uL MPV (9.5-12.2) fL Immature Gran % (Auto) % Neutrophils % % Lymphocytes % % Monocytes % % Eosinophils % % Basophils % % Immature Gran # (0.00-0.04) 10*3/uL Neutrophils # (1.80-7.70) 10*3/uL Lymphocytes # (0.90-5.00) 10*3/uL Monocytes # (0.20-1.00) 10*3/uL Eosinophils # (0.04-0.35) 10*3/uL Basophils # (0.00-0.10) 10*3/uL PT (10.0-12.5) sec INR (<1.2) APTT (22.0-30.0) sec Sodium (137-145) mmol/L Potassium (3.5-5.1) mmol/L Chloride (98-107) mmol/L Carbon Dioxide (22-30) mmol/L Anion Gap mmol/L BUN (9-20) mg/dL Creatinine (0.66-1.25) mg/dL Est GFR (CKD-EPI)AfAm (>60 ml/min/1.73 sqM) Est GFR (CKD-EPI)NonAf (>60 ml/min/1.73 sqM) Glucose (74-99) mg/dL Calcium (8.4-10.2) mg/dL Magnesium (1.6-2.3) mg/dL Total Bilirubin (0.2-1.3) mg/dL AST (17-59) U/L ALT (4-49) U/L Alkaline Phosphatase (38-126) U/L Troponin I <0.012 (0.000-0.034) ng/mL Total Protein (6.3-8.2) g/dL Albumin (3.5-5.0) g/dL Disposition Clinical Impression: Chest pain Disposition: ADMITTED IP TO THIS HOSP Condition: Stable Is patient prescribed a controlled substance at d/c from ED?: No
[2024-11-13 18:05] LABS: Basophils # (A) 0.05 10*3/uL (0.00-0.10); Basophils % (A) 0.6 %; Eosinophils # (A) 0.05 10*3/uL (0.04-0.35); Eosinophils % (A) 0.6 %; HCT 42.6 % (39.6-50.0); HGB 14.4 g/dL (13.0-17.0); Lymphocytes # (A) 1.51 10*3/uL (0.90-5.00); Lymphocytes % (A) 19.2 %; MCH 31.1 pg (27.0-32.0); MCHC 33.8 g/dL (32.0-37.0); MCV 92.0 fL (80.0-97.0); Monocytes # (A) 0.64 10*3/uL (0.20-1.00); Monocytes % (A) 8.1 %; Neutrophils # (A) 5.60 10*3/uL (1.80-7.70); Neutrophils % (A) 71.4 %; Platelet Count 208 10*3/uL (140-440); RBC 4.63 10*6/uL (4.40-5.60); RDW 13.3 % (11.5-14.5); WBC 7.86 10*3/uL (4.50-10.00)
[2024-11-13 18:14] LABS: ALT 18 U/L (4-49); AST 23 U/L (17-59); African American GFR (CKD) >90 (>60 ml/min/1.73 sqM); Albumin 4.3 g/dL (3.5-5.0); Alkaline Phosphatase 83 U/L (38-126); Anion Gap 12 mmol/L; Blood Urea Nitrogen 20 mg/dL (9-20); Calcium 10.0 mg/dL (8.4-10.2); Carbon Dioxide 27 mmol/L (22-30); Chloride 101 mmol/L (98-107); Glucose 113 mg/dL (74-99); Magnesium 2.0 mg/dL (1.6-2.3); Non-African American GFR(CKD) 89 (>60 ml/min/1.73 sqM); Potassium 3.9 mmol/L (3.5-5.1); Sodium 140 mmol/L (137-145); Total Protein 6.7 g/dL (6.3-8.2)
[2024-11-13 18:25] LABS: INR 1.0 (<1.2); Partial Thromboplastin Time 25.4 sec (22.0-30.0); Prothrombin Time 11.0 sec (10.0-12.5)
[2024-11-13] MEDS: ASPIRIN 81 MG PO STA (18:27)
[2024-11-13] MEDS ORDERED: NALOXONE 0.4 MG/ML 1 ML VIAL IV PRN (19:44)
[2024-11-13] MEDS ORDERED: MORPHINE SULFATE 4 MG/ML SYRINGE IV PRN (19:44)
--- NOTE | 2024-11-13 22:00 | P.HPIM ---
History of Present Illness H&P Date: 11/13/24 Patient is a 74 y/o M with HTN, HLD here for chest pain. Patient shares that he had a burning sensation over his heart at rest at 3 am which was 10/10 in severity associated with diaphoresis. It lasted about 30 minutes and then spontaneously resolved. Indicated he took some tums at this time. Throughout the day he had minor sxs (1/10 burning sensation) but was able to mow the lawn and do his daily activities. Today at 5pm he had the same episode of severe chest pain 7/10 in severity with diaphoresis and decided to come to ED. Patient was hospitalized in 2022. Denies any edema, palpitations, SOB. 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 Physical examination: Vital signs reviewed General: non toxic, no distress, appears at stated age, normal weight Derm: no unusual rashes/lesions, warm Head: atraumatic, normocephalic, symmetric Eyes: EOMI, anicteric sclera, pupils equal round reactive to light ENT: Nose and ears atraumatic Neck: No cervical lymphadenopathy, trachea midline, supple Mouth: no lip lesion, mucus membranes moist Cardiovascular: S1S2 reg, no murmur, positive dorsalis pedis pulse bilateral, no edema Lungs: CTA bilateral, no rhonchi, no rales, no accessory muscle use Abdominal: soft, nontender to palpation, no guarding Ext: muscle strength 5 out of 5 in all 4 extremities grossly, no gross muscle atrophy Neuro: CN II-XI grossly intact, no gross focal neuro deficits Psych: Alert, oriented to person, place, and time Assessment/Plan: #Chest pain 2/2 AR vs Angina -No signs of hemodynamic instability -Troponin <0.012 (2 readings 2 hours apart both negative) -CXR: Negative -EKG: Normal sinus -Stress test 07/30/22: EF 69%, small area of reversible ischemia involving apical septal wall -Cardiac cath in 2022; 40% LAD occlusion, 30-35% RCA occlusion -HEART Score: 4 (Moderate risk) - Consider stress test or CT angio. Plan: -Serial troponin q3hr -Cardiac telemetry -CBC, CMP, Lipid panel -Aspirin 325mg PO -Nitroglycerin PRN chest pain -Cards consult -Pain management with morphine 4mg IV push for severe and 0.5mg dilaudid for moderate pain Chronic conditions: #HTN: Pts blood pressure well controlled in ED Plan: -Continue Losartan-HCTZ 50/12.5mg PO Daily #HLD Plan: -Continue atorvastatin 40mg PO daily DVT prophylaxis: [Lovenox 40mg SQ Daily] The patient is admitted with an anticipated [] than 2 midnight stay for evaluati on of [] CODE STATUS: [FULL CODE] Discussed with: [Dr Mclaughlin] Anticipated discharge place: [Home] I have seen and evaluated the patient today. I Discussed the case with the resident and agree with the resident's findings I edited the assessment and plan as necessary as documented in the resident's note. Past Medical History Past Medical History: Coronary Artery Disease (CAD), CVA/TIA, Hyperlipidemia, Hypertension Additional Past Medical History / Comment(s): tia History of Any Multi-Drug Resistant Organisms: None Reported Past Surgical History: Heart Catheterization Past Anesthesia/Blood Transfusion Reactions: No Reported Reaction Past Psychological History: No Psychological Hx Reported Smoking Status: Former smoker Past Alcohol Use History: None Reported Past Drug Use History: None Reported Medications and Allergies Home Medications Medication Instructions Recorded Confirmed Type Aspirin EC [Ecotrin Low Dose] 81 mg PO DAILY 07/29/22 11/13/24 History Atorvastatin Calcium [Lipitor] 40 mg PO DAILY 07/29/22 11/13/24 History Losartan-Hctz 50-12.5 mg [Hyzaar 1 tab PO DAILY 07/29/22 11/13/24 History 50-12.5] Allergies Allergy/AdvReac Type Severity Reaction Status Date / Time No Known Allergies Allergy Verified 11/13/24 19:37 Physical Exam Vitals: Vital Signs Temp Pulse Pulse Resp BP Pulse Ox 11/13/24 20:21 98.1 F 78 19 114/81 93 L 11/13/24 19:10 68 18 99/70 95 11/13/24 18:00 64 18 94/68 97 11/13/24 17:40 65 11/13/24 16:33 97.9 F 77 20 110/74 99 Intake and Output 11/13/24 11/13/24 11/13/24 06:59 14:59 22:59 Other: Weight 68.039 kg Results CBC & Chem 7: 11/13/24 17:48 11/13/24 17:48 Labs: Abnormal Lab Results - Last 24 Hours (Table) 11/13/24 Range/Units 17:48 Glucose 113 H (74-99) mg/dL
[2024-11-13 22:44] VITALS: RESP 16
[2024-11-13] MEDS: HYDROmorphone 0.5 MG/0.5 ML SYRINGE IVP PRN (23:10)
[2024-11-13] MEDS ORDERED: NITROGLYCERIN SL TABS 0.4 MG TAB SUBLINGUAL PRN (23:17)
[2024-11-14 08:20] VITALS: TEMP 98
[2024-11-14] MEDS: ENOXAPARIN 40 MG/0.4 ML SYRINGE SQ SCH (08:33)
[2024-11-14] MEDS: ATORVASTATIN 40 MG TAB PO SCH (08:33)
[2024-11-14] MEDS: LOSARTAN-HCTZ 50-12.5 MG 1 EACH TAB PO SCH (08:33)
[2024-11-14] MEDS: ASPIRIN 81 MG PO SCH (08:33)
[2024-11-14 08:56] LABS: Cholesterol 98.00 mg/dL (0.00-200.00); HDL Cholesterol 35.00 mg/dL (40.00-60.00); LDL Cholesterol,Calculated 15.6 mg/dL (0.0-131.0); Triglycerides 237.00 mg/dL (0.00-149.00); VLDL Calculation 47.40 mg/dL (5.00-40.00)
[2024-11-14] MEDS: LOSARTAN 25 MG TAB PO SCH (09:52)
[2024-11-14 10:04] VITALS: PULSE 72
[2024-11-14 10:16] LABS: Magnesium 2.0 mg/dL (1.6-2.3)
[2024-11-14 10:26] LABS: NT-Pro-B-Type Natriuretic Pept 40 pg/mL
[2024-11-14] MEDS: ISOSORBIDE MONONITRATE ER 15 MG TAB PO SCH (11:38)
--- NOTE | 2024-11-14 12:46 | P.DS ---
Providers Date of admission: 11/13/24 19:45 Expected date of discharge: 11/14/24 Attending physician: Tatyana Mclaughlin MD Consults: 11/13/24 19:44 Consult Physician Routine Consulting Provider: Jun Rand Consult Reason/Comments: chest pain Do you want consulting provider notified?: Yes, Notify in am Primary care physician: [facility] Course: #Chest pain #HTN: #HLD Patient is a 74 y/o M with HTN, HLD who presented for chest pain. On arrival patient was afebrile, heart rate 78, 114/81, 93% on room air. Troponins were negative by 3. Chest x-ray was unremarkable. EKG was normal sinus rhythm with no evidence of ischemia. Patient was admitted to observation for chest pain rule out, seen in consultation with cardiology. Patient was recommended for st ress test, but advised that since his pain had resolved he would prefer to be discharged home and follow-up outpatient with cardiology. Patient has a follow- up appointment on Saturday with cardiology. Patient was started on antianginals with some blood pressure medication adjustments including the discontinuation of hydrochlorothiazide, increase of losartan, and addition of amlodipine and Imdur. Patient was also advised to follow-up with his primary care physician. I spent 32 minutes coordinating this discharge. Gen: In NAD, non-toxic HEENT: normocephalic, atraumatic, hearing acuity is intant, mucous membranes moist CVS: perfusing all extremities well, no pitting edema, Respiratory: symmetric chest expansion, no accessory muscle use, GI: soft, NTTP, ND, : no suprapubic tenderness, no CVA tenderness MSK/Derm: no rashes, cyanosis Neuro: CN II-XII intact, no motor weakness, Psych: cooperative, euthymic mood, judgment and insight is intact Patient Condition at Discharge: Good Plan - Discharge Summary Discharge Rx Participant: No New Discharge Prescriptions: New Losartan [Cozaar] 25 mg PO DAILY #30 tab Isosorbide Mononitrate ER [Imdur] 15 mg PO DAILY #30 tab amLODIPine [Norvasc] 5 mg PO DAILY #30 tab Nitroglycerin Sl Tabs [Nitrostat] 0.4 mg SUBLINGUAL Q5M PRN #15 tab PRN Reason: Chest Pain Continue Aspirin EC [Ecotrin Low Dose] 81 mg PO DAILY Atorvastatin Calcium [Lipitor] 40 mg PO DAILY Discontinued Losartan-Hctz 50-12.5 mg [Hyzaar 50-12.5] 1 tab PO DAILY Discharge Medication List Aspirin EC [Ecotrin Low Dose] 81 mg PO DAILY 07/29/22 [History] Atorvastatin Calcium [Lipitor] 40 mg PO DAILY 07/29/22 [History] Isosorbide Mononitrate ER [Imdur] 15 mg PO DAILY #30 tab 11/14/24 [Rx] Losartan [Cozaar] 25 mg PO DAILY #30 tab 11/14/24 [Rx] Nitroglycerin Sl Tabs [Nitrostat] 0.4 mg SUBLINGUAL Q5M PRN #15 tab 11/14/24 [Rx] amLODIPine [Norvasc] 5 mg PO DAILY #30 tab 11/14/24 [Rx] Follow up Appointment(s)/Referral(s): Orestes Lawson DO [STAFF PHYSICIAN] - 11/17/24 David Rizzo DO [Primary Care Provider] - 1-2 days Discharge Disposition: HOME SELF-CARE
[2024-11-14 12:48] VITALS: BP 95/53
[2024-11-14] MEDS: amLODIPine 5 MG TAB PO SCH (12:48)
--- NOTE | 2024-11-14 17:29 | P.CRDCN ---
History of Present Illness Consult date: 11/14/24 History of present illness: HISTORY OF PRESENTING ILLNESS: 74-year-old known to our service, follows with Dr. Mckeon history of hypertension dyslipidemia Heart cath in 2022 40-45% LAD occlusion, 30 to 35% RCA occlusion Presents to the hospital because of burning substernal chest pressure that started after eating. The symptoms got better after 30 minutes. Following this throughout the day he had symptoms of relapsing remitting substernal chest heaviness 1/10 in intensity. He however did do some work in his lawn without any limitation. Yesterday evening he again had some substernal chest heaviness with some diaphoresis therefore she presented to the ER. ...... ................................................................................ ........................................................ Admission labs shows hemoglobin 14, BUN 20, creatinine 0.8, A1c 5.7, troponin x 3 negative, NT-proBNP normal at 40, LDL at 15, TG at 237, TSH 1.2 History smokes 1 pack/day. Denies any heavy alcohol use drug use marijuana use .................................... ................................................................................ .......................... Prior cardiac testing: Last echo from 2022 shows an EF of 50% with no major valvular abnormality Stress test in 2022 which showed small apical reversible perfusion defect heart catheterization from 2022 done showing 40% ostial proximal LAD, unchanged when compared to heart cath 9 years ago, 30 to 35% mid RCA disease. ....................................................................... ....................................................................... REVIEW OF SYSTEMS: 14 point review of system is negative except what is mentioned above in HPI. ................................ ................................................................................ .............................. PHYSICAL EXAMINATION: Neck: Brisk carotid upstroke, no jugular venous distention. Lungs: Clear to auscultation. Heart: Regular rate and rhythm, S1-S2, , no murmur or rub. Abdomen: Soft nontender, positive bowel sounds. Extremities: No edema, intact distal pulses. Neuro: Alert, oritented, no focal deficits. Detailed neuro exam was not performed. ......................................... ................................................................................ ..................... ASSESSMENT: # Atypical chest pain, ACS has been ruled out # Essential hypertension # Moderate nonobstructive CAD # 1 pack tobacco smoker PLAN: Continue aspirin, Lipitor Add antianginal Imdur 15 mg, amlodipine 5 mg. Change add hypertensive. Stop Hyzaar and start losartan 25 daily I recommend him to perform an echocardiogram and a stress test. This test could not be performed over the weekend as hospital has not provided us with enough staff to perform these testing. I offered him to keep him over the weekend however he is unwilling to stay. He understands the risk factors of not getting this test done including I have highly recommended him to follow-up in the office. He has an appointment with Dr. Lawson on Saturday Arnaldo King MD, [facility] Past Medical History Past Medical History: Coronary Artery Disease (CAD), CVA/TIA, Hyperlipidemia, Hypertension Additional Past Medical History / Comment(s): tia History of Any Multi-Drug Resistant Organisms: None Reported Past Surgical History: Heart Catheterization Past Anesthesia/Blood Transfusion Reactions: No Reported Reaction Past Psychological History: No Psychological Hx Reported Smoking Status: Former smoker Past Alcohol Use History: None Reported Past Drug Use History: None Reported Medications and Allergies Home Medications Medication Instructions Recorded Confirmed Type Aspirin EC [Ecotrin Low Dose] 81 mg PO DAILY 07/29/22 11/13/24 History Atorvastatin Calcium [Lipitor] 40 mg PO DAILY 07/29/22 11/13/24 History Isosorbide Mononitrate ER [Imdur] 15 mg PO DAILY #30 tab 11/14/24 Rx Losartan [Cozaar] 25 mg PO DAILY #30 tab 11/14/24 Rx Nitroglycerin Sl Tabs [Nitrostat] 0.4 mg SUBLINGUAL Q5M PRN #15 tab 11/14/24 Rx amLODIPine [Norvasc] 5 mg PO DAILY #30 tab 11/14/24 Rx Allergies Allergy/AdvReac Type Severity Reaction Status Date / Time No Known Allergies Allergy Verified 11/13/24 19:37 Physical Exam Vitals: Vital Signs Temp Pulse Pulse Pulse Pulse Resp BP 11/14/24 12:45 11/14/24 10:04 72 11/14/24 08:41 11/14/24 07:12 98.0 F 66 16 11/14/24 00:42 98.3 F 59 L 16 11/13/24 22:43 97.7 F 73 16 11/13/24 22:07 97.7 F 100 19 92/69 11/13/24 20:21 98.1 F 78 19 114/81 11/13/24 19:10 68 18 99/70 11/13/24 18:00 64 18 94/68 11/13/24 17:40 65 BP BP Pulse Ox 11/14/24 12:45 95/53 11/14/24 10:04 100/62 11/14/24 08:41 106/67 11/14/24 07:12 101/71 96 11/14/24 00:42 103/61 97 11/13/24 22:43 98/64 96 11/13/24 22:07 97 11/13/24 20:21 93 L 11/13/24 19:10 95 11/13/24 18:00 97 11/13/24 17:40 Intake and Output 11/14/24 11/14/24 11/14/24 06:59 14:59 22:59 Intake Total 118 Balance 118 Intake: Oral 118 Other: Voiding Method Toilet # Voids 2 1 Results 11/13/24 17:48 11/13/24 17:48 Cardiac Enzymes 11/13/24 11/13/24 11/13/24 Range/Units 17:48 17:48 20:40 AST 23 (17-59) U/L Troponin I <0.012 <0.012 (0.000-0.034) ng/mL 11/13/24 Range/Units 23:37 AST (17-59) U/L Troponin I <0.012 (0.000-0.034) ng/mL Coagulation 11/13/24 Range/Units 17:48 PT 11.0 (10.0-12.5) sec APTT 25.4 (22.0-30.0) sec Lipids 11/13/24 Range/Units 23:37 Triglycerides 237.00 H (0.00-149.00) mg/dL Cholesterol 98.00 (0.00-200.00) mg/dL HDL Cholesterol 35.00 L (40.00-60.00) mg/dL Cholesterol/HDL Ratio 2.80 Ratio CBC 11/13/24 Range/Units 17:48 WBC 7.86 (4.50-10.00) 10*3/uL RBC 4.63 (4.40-5.60) 10*6/uL Hgb 14.4 (13.0-17.0) g/dL Hct 42.6 (39.6-50.0) % Plt Count 208 (140-440) 10*3/uL Comprehensive Metabolic Panel 11/13/24 Range/Units 17:48 Sodium 140 (137-145) mmol/L Potassium 3.9 (3.5-5.1) mmol/L Chloride 101 (98-107) mmol/L Carbon Dioxide 27 (22-30) mmol/L BUN 20 (9-20) mg/dL Creatinine 0.80 (0.66-1.25) mg/dL Glucose 113 H (74-99) mg/dL Calcium 10.0 (8.4-10.2) mg/dL AST 23 (17-59) U/L ALT 18 (4-49) U/L Alkaline Phosphatase 83 (38-126) U/L Total Protein 6.7 (6.3-8.2) g/dL Albumin 4.3 (3.5-5.0) g/dL Intake and Output 11/14/24 11/14/24 11/14/24 06:59 14:59 22:59 Intake Total 118 Balance 118 Intake: Oral 118 Other: Voiding Method Toilet # Voids 2 1 11/13/24 17:48 11/13/24 17:48
[2024-11-15 01:02] LABS: Cholesterol 100.00 mg/dL (0.00-200.00); HDL Cholesterol 38.00 mg/dL (40.00-60.00); LDL Cholesterol,Calculated 30.6 mg/dL (0.0-131.0); Triglycerides 157.00 mg/dL (0.00-149.00); VLDL Calculation 31.40 mg/dL (5.00-40.00)
== END 2024-11-14 14:05 | disposition home or self-care (01) ==
LOC: EC 16:32 → 6NMEDSUR 19:45
PROVIDERS: ADMIT Internal Medicine; ATTEND Internal Medicine
DX: R07.89 Other chest pain (principal); I10 Essential (primary) hypertension; I25.10 Atherosclerotic heart disease of native coronary artery without angina pectoris; E78.5 Hyperlipidemia, unspecified; Z86.73 Personal history of transient ischemic attack (TIA), and cerebral infarction without residual deficits; Z87.891 Personal history of nicotine dependence; Z79.82 Long term (current) use of aspirin; Z79.899 Other long term (current) drug therapy
CPT/HCPCS: 96372; 96374; 99285; 36415; 93005; 83880; 80061 ×2; 80053; 84443; 83735 ×2; 84484; 85025; 85610; 85730; 83036; 71046; G0378 ×2; J1650; J1171

== ENCOUNTER 2024-11-15 03:44 | Emergency (ER) | payer MEDICARE ==
--- NOTE | 2024-11-15 03:51 | ED ---
Chest Pain HPI - General Stated Complaint: chest pain Time Seen by Provider: 11/15/24 03:49 Source: RN notes reviewed, old records reviewed Mode of arrival: ambulatory Limitations: no limitations - History of Present Illness Initial Comments: This is a 74-year-old male to the ER for evaluation of chest pain. Recent inpatient hospital admission for chest pain MD Complaint: chest pain -: days(s) Onset: during rest, during exertion Pain Location: left chest Pain Radiation: none Severity: moderate Severity scale (1-10): 4 Improves With: nothing Worsens With: nothing Anginal Symptoms: sense of impending doom Other Symptoms: palpitations Treatments Prior to Arrival: none - Related Data Home Medications Medication Instructions Recorded Confirmed Aspirin EC [Ecotrin Low Dose] 81 mg PO DAILY 07/29/22 11/13/24 Atorvastatin Calcium [Lipitor] 40 mg PO DAILY 07/29/22 11/13/24 Previous Rx's Medication Instructions Recorded Isosorbide Mononitrate ER [Imdur] 15 mg PO DAILY #30 tab 11/14/24 Losartan [Cozaar] 25 mg PO DAILY #30 tab 11/14/24 Nitroglycerin Sl Tabs [Nitrostat] 0.4 mg SUBLINGUAL Q5M PRN #15 tab 11/14/24 amLODIPine [Norvasc] 5 mg PO DAILY #30 tab 11/14/24 Allergies Allergy/AdvReac Type Severity Reaction Status Date / Time No Known Allergies Allergy Verified 11/15/24 03:56 Review of Systems ROS Statement: Those systems with pertinent positive or pertinent negative responses have been documented in the HPI. ROS Other: All systems not noted in ROS Statement are negative. EKG Findings - EKG Comments: EKG Findings:: EKG is sinus 64 WA 211 QRS 88 QTc 383 - EKG Results: EKG: interpreted by JAYCEE Past Medical History Past Medical History: Coronary Artery Disease (CAD), CVA/TIA, Hyperlipidemia, Hypertension Additional Past Medical History / Comment(s): tia History of Any Multi-Drug Resistant Organisms: None Reported Past Surgical History: Heart Catheterization Past Anesthesia/Blood Transfusion Reactions: No Reported Reaction Past Psychological History: No Psychological Hx Reported Smoking Status: Former smoker Past Alcohol Use History: None Reported Past Drug Use History: None Reported General Exam General appearance: alert, in no apparent distress Head exam: Present: atraumatic, normocephalic, normal inspection Eye exam: Present: normal appearance, PERRL, EOMI. Absent: scleral icterus, conjunctival injection, periorbital swelling ENT exam: Present: normal exam, mucous membranes moist Neck exam: Present: normal inspection. Absent: tenderness, meningismus, lymphadenopathy Respiratory exam: Present: normal lung sounds bilaterally. Absent: respiratory distress, wheezes, rales, rhonchi, stridor Cardiovascular Exam: Present: regular rate, normal rhythm, normal heart sounds. Absent: systolic murmur, diastolic murmur, rubs, gallop, clicks GI/Abdominal exam: Present: soft, normal bowel sounds. Absent: distended, tenderness, guarding, rebound, rigid Extremities exam: Present: normal inspection, full ROM, normal capillary refill. Absent: tenderness, pedal edema, joint swelling, calf tenderness Back exam: Present: normal inspection Neurological exam: Present: alert, oriented X3, CN II-XII intact Psychiatric exam: Present: normal affect, normal mood Skin exam: Present: warm, dry, intact, normal color. Absent: rash Course Vital Signs 11/15/24 11/15/24 03:53 03:57 Temperature 97.9 F Pulse Rate 75 Pulse Rate [ 77 Left Sitting Radial] Respiratory 18 Rate Blood Pressure 103/67 O2 Sat by Pulse 97 Oximetry - Reevaluation(s) Reevaluation #1: 11/15/24 03:50 Medical records reviewed Reevaluation #2: 11/15/24 06:21 Patient's chest pain is improved here in the ER Reevaluation #4: Was pt. sent in by a medical professional or institution (, PA, CISTERN ROOM OPERATOR, urgent care, hospital, or [facility]...) When possible be specific @ -no Did you speak to anyone other than the patient for history (EMS, parent, family, police, friend...)? What history was obtained from this source @ -no Did you review nursing and triage notes (agree or disagree)? Why? @ -agree Are old charts reviewed (outside hosp., previous admission, EMS record, old EKG, old radiological studies, urgent care reports/EKG's, [facility] records)? Report findings @ -yes Differential Diagnosis (chest pain, altered mental status, abdominal pain women, abdominal pain men, vaginal bleeding, weakness, fever, dyspnea, syncope, headache, dizziness, GI bleed, back pain, seizure, CVA, palpatations, mental health, musculoskeletal)? @ -prior EKG interpreted by me (3pts min.). @ -yes X-rays interpreted by me (1pt min.). @ -yes negative for acute disease CT interpreted by me (1pt min.). @ -no U/S interpreted by me (1pt. min.). @ -no What testing was considered but not performed or refused? (CT, X-rays, U/S, labs)? Why? @ -none What meds were considered but not given or refused? Why? @ -none Did you discuss the management of the patient with other professionals (professionals i.e. DrLoki, PA, CISTERN ROOM OPERATOR, lab, RT, psych nurse, social media marketing manager, certified performance technologist, teacher, public service officer, employment evaluator/case manager)? Give summary @ -no Was smoking cessation discussed for >3mins.? @ -no Was critical care preformed (if so, how long)? @ -no Were there social determinants of health that impacted care today? How? (Homelessness, low income, unemployed, alcoholism, drug addiction, transportation, low edu. Level, literacy, decrease access to med. care, longterm, rehab)? @ -none Was there de-escalation of care discussed even if they declined (Discuss DNR or withdrawal of care, Hospice)? DNR status @ -no What co-morbidities impacted this encounter? (DM, HTN, Smoking, COPD, CAD, Cancer, CVA, ARF, Chemo, Hep., AIDS, mental health diagnosis, sleep apnea, mor bid obesity)? @ -none Was patient admitted / discharged? Hospital course, mention meds given and route, prescriptions, significant lab abnormalities, going to OR and other pertinent info. @ - Undiagnosed new problem with uncertain prognosis? @ -no Drug Therapy requiring intensive monitoring for toxicity (Heparin, Nitro, Insulin, Cardizem)? @ -no Were any procedures done? @ -no Diagnosis/symptom? @ - Acute, or Chronic, or Acute on Chronic? @ -Acute Uncomplicated (without systemic symptoms) or Complicated (systemic symptoms)? @ -Complicated Side effects of treatment? @ -no Exacerbation, Progression, or Severe Exacerbation? @ -exacerbation Poses a threat to life or bodily function? How? (Chest pain, [place], [place], pneumonia, PE, COPD, DKA, ARF, appy, cholecystitis, CVA, Diverticulitis, Homicidal, Suicidal, threat to staff... and all critical care pts) @ -yes Reevaluation #5: Differential Chest Pain: Stable Angina, Unstable Angina, STEMI, NSTEMI Aortic Dissection, Pneumothorax, Musculoskeletal, Esophageal Spasm GERD, Cholecystitis, Pancreatitis, Zoster, this is not meant to be an all-inclusive list. 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
[2024-11-15 03:57] VITALS: RESP 18; TEMP 97.9
[2024-11-15 04:40] LABS: Basophils # (A) 0.05 10*3/uL (0.00-0.10); Basophils % (A) 0.6 %; Eosinophils # (A) 0.08 10*3/uL (0.04-0.35); Eosinophils % (A) 0.9 %; HCT 41.5 % (39.6-50.0); HGB 14.0 g/dL (13.0-17.0); Lymphocytes # (A) 1.32 10*3/uL (0.90-5.00); Lymphocytes % (A) 15.1 %; MCH 31.3 pg (27.0-32.0); MCHC 33.7 g/dL (32.0-37.0); MCV 92.6 fL (80.0-97.0); Monocytes # (A) 0.71 10*3/uL (0.20-1.00); Monocytes % (A) 8.1 %; Neutrophils # (A) 6.55 10*3/uL (1.80-7.70); Neutrophils % (A) 75.1 %; Platelet Count 202 10*3/uL (140-440); RBC 4.48 10*6/uL (4.40-5.60); RDW 13.2 % (11.5-14.5); WBC 8.73 10*3/uL (4.50-10.00)
[2024-11-15 04:51] LABS: ALT 18 U/L (4-49); African American GFR (CKD) >90 (>60 ml/min/1.73 sqM); Anion Gap 11 mmol/L; Blood Urea Nitrogen 26 mg/dL (9-20); Calcium 10.4 mg/dL (8.4-10.2); Carbon Dioxide 23 mmol/L (22-30); Chloride 103 mmol/L (98-107); Glucose 115 mg/dL (74-99); Lipase 122 U/L (23-300); Non-African American GFR(CKD) >90 (>60 ml/min/1.73 sqM); Sodium 137 mmol/L (137-145)
[2024-11-15 04:52] LABS: INR 1.0 (<1.2); Partial Thromboplastin Time 24.5 sec (22.0-30.0); Prothrombin Time 11.4 sec (10.0-12.5)
[2024-11-15 04:54] LABS: AST 31 U/L (17-59); Albumin 4.1 g/dL (3.5-5.0); Alkaline Phosphatase 84 U/L (38-126); Magnesium 2.0 mg/dL (1.6-2.3); Potassium 4.1 mmol/L (3.5-5.1); Total Protein 6.8 g/dL (6.3-8.2)
[2024-11-15 05:00] LABS: NT-Pro-B-Type Natriuretic Pept 36 pg/mL
[2024-11-15] MEDS: HYDROmorphone 1 MG/ML 1 ML SYRINGE IVP STA (05:17)
--- NOTE | 2024-11-15 06:40 | XR ---
Chest, 2 view. CLINICAL INDICATION: Male, 74 years old with history of Chest Pain COMPARISON: 11/13/2024 TECHNIQUE: PA and lateral views the chest are obtained. FINDINGS: There is no airspace consolidation. There is mild prominence of the interstitial density in the right lung which is most likely chronic interstitial change. There is no pleural effusion or pneumothorax. The heart, pulmonary vasculature, mediastinum and aurea appear normal. The osseous structures are intact. IMPRESSION: No acute cardiopulmonary process. No interval change. [facility], , 11/15/2024 6:37 AM
[2024-11-15 07:28] VITALS: BP 96/52; PULSE 66
[2024-11-15] MEDS: ACET/COD 300 MG/30 MG STARTER PACK 6 TAB BTL PO STA (08:54)
== END 2024-11-15 09:02 | disposition home or self-care (01) ==
LOC: EC 03:44
DX: R07.9 Chest pain, unspecified (principal); Z87.891 Personal history of nicotine dependence
CPT/HCPCS: 36415; 93005; 83880; 80053; 83690; 83735; 84484; 85025; 85610; 85730; 71046; 99285; 96374; J1171

== ENCOUNTER 2024-11-19 19:36 | Emergency (ER) | payer MEDICARE ==
[2024-11-19 19:50] VITALS: RESP 18
[2024-11-19] MEDS: FAMOTIDINE 20 MG/2 ML VIAL IV STA (20:20)
[2024-11-19] MEDS: LIDOCAINE VISCOUS 2% 15 ML CUP PO ONE (20:21)
[2024-11-19] MEDS: MAG HYDROX/AL HYDROX/SIMETH 30 ML CUP PO STA (20:21)
[2024-11-19] MEDS: SODIUM CHLORIDE 0.9% 500 ML 500 ML IV ONE (20:21)
[2024-11-19] MEDS: PANTOPRAZOLE 40 MG/10 ML VIAL IVP STA (20:21)
[2024-11-19 20:24] LABS: Basophils # (A) 0.04 10*3/uL (0.00-0.10); Basophils % (A) 0.5 %; Eosinophils # (A) 0.04 10*3/uL (0.04-0.35); Eosinophils % (A) 0.5 %; HCT 39.0 % (39.6-50.0); HGB 13.1 g/dL (13.0-17.0); Lymphocytes # (A) 1.60 10*3/uL (0.90-5.00); Lymphocytes % (A) 21.7 %; MCH 31.3 pg (27.0-32.0); MCHC 33.6 g/dL (32.0-37.0); MCV 93.1 fL (80.0-97.0); Monocytes # (A) 0.57 10*3/uL (0.20-1.00); Monocytes % (A) 7.7 %; Neutrophils # (A) 5.13 10*3/uL (1.80-7.70); Neutrophils % (A) 69.5 %; Platelet Count 193 10*3/uL (140-440); RBC 4.19 10*6/uL (4.40-5.60); RDW 13.3 % (11.5-14.5); WBC 7.39 10*3/uL (4.50-10.00)
--- NOTE | 2024-11-19 20:27 | ED ---
Abdominal Pain HPI - General Chief Complaint: Abdominal Pain Stated Complaint: chest pain and burning in stomach Time Seen by Provider: 11/19/24 19:51 Source: patient, RN notes reviewed Mode of arrival: ambulatory Limitations: no limitations - History of Present Illness Initial Comments: This is a 74-year-old male who presents to the emergency department for abdominal pain. States that for the last several days he has had intermittent bouts of burning pain that starts in his abdomen and goes up into his rib cage. Denies any shortness of breath associated with this. This has gotten worse after eating on several occasions, but states that it also occurs independently of this. He was discharged from here a couple of days ago after being admitted for cardiac observation. He is scheduled for an echocardiogram and stress test in the next few days. However, states that he feels like it could be something more like an ulcer as opposed to a cardiac issue. He is not currently on any medication for acid reflux. MD Complaint: abdominal pain - Related Data Home Medications Medication Instructions Recorded Confirmed Aspirin EC [Ecotrin Low Dose] 81 mg PO DAILY 07/29/22 11/13/24 Atorvastatin Calcium [Lipitor] 40 mg PO DAILY 07/29/22 11/13/24 Previous Rx's Medication Instructions Recorded Isosorbide Mononitrate ER [Imdur] 15 mg PO DAILY #30 tab 11/14/24 Losartan [Cozaar] 25 mg PO DAILY #30 tab 11/14/24 Nitroglycerin Sl Tabs [Nitrostat] 0.4 mg SUBLINGUAL Q5M PRN #15 tab 11/14/24 amLODIPine [Norvasc] 5 mg PO DAILY #30 tab 11/14/24 Famotidine 40 mg PO DAILY #30 tablet 11/19/24 Mag Hydrox/Al Hydrox/Simeth 10 - 20 ml PO QID PRN #473 ml 11/19/24 [Maalox] Pantoprazole Sodium 40 mg PO DAILY #30 tab 11/19/24 Allergies Allergy/AdvReac Type Severity Reaction Status Date / Time No Known Allergies Allergy Verified 11/19/24 19:50 Review of Systems ROS Statement: Those systems with pertinent positive or pertinent negative responses have been documented in the HPI. ROS Other: All systems not noted in ROS Statement are negative. Past Medical History Past Medical History: Coronary Artery Disease (CAD), CVA/TIA, Hyperlipidemia, Hypertension Additional Past Medical History / Comment(s): tia History of Any Multi-Drug Resistant Organisms: None Reported Past Surgical History: Heart Catheterization Past Anesthesia/Blood Transfusion Reactions: No Reported Reaction Past Psychological History: No Psychological Hx Reported Smoking Status: Current every day smoker Past Alcohol Use History: None Reported Past Drug Use History: None Reported General Exam Limitations: no limitations General appearance: alert, in no apparent distress Head exam: Present: atraumatic, normocephalic, normal inspection Respiratory exam: Present: normal lung sounds bilaterally. Absent: respiratory distress, wheezes, rales, rhonchi, stridor Cardiovascular Exam: Present: regular rate, normal rhythm GI/Abdominal exam: Present: soft. Absent: distended, tenderness Neurological exam: Present: alert, oriented X3, CN II-XII intact Psychiatric exam: Present: normal affect, normal mood Skin exam: Present: warm, dry, intact, normal color. Absent: rash Course Vital Signs 11/19/24 19:48 Temperature 97.8 F Pulse Rate 71 Respiratory 18 Rate Blood Pressure 127/74 O2 Sat by Pulse 98 Oximetry Medical Decision Making - Medical Decision Making This is a 74 year old male who presents to the emergency department for abdominal pain. Was pt. sent in by a medical professional or institution? @ -No Did you speak to anyone other than the patient for history? @ -No Did you review nursing and triage notes? @ -Yes, and I agree, it is accurate with regards to the patient's symptoms. Were old charts reviewed? @ -No Differential Diagnosis? @ -Differential Abdominal Pain Men: Appendicitis, cholecystitis, diverticulosis, ischemic bowel, pancreatitis, hepatitis, UTI, gastroenteritis, AAA, incarcerated hernia, bowel obstruction, constipation, inflammatory bowel, hepatitis, peptic ulcer disease, splenic infarction, perforated viscus, testicular torsion, this is not meant to be an all-inclusive list EKG interpreted by me (3pts min.)? @ -EKG interpreted by me demonstrating the following: Sinus rhythm. Ventricular rate 67 bpm, MO interval 198 ms, QRS duration 94 ms, QTc 378 ms. X-rays interpreted by me (1pt min.)? @ -Chest x-ray obtained, my interpretation identifies no localized consolidations or infiltrates. CT interpreted by me (1pt min.)? @ -Not obtained U/S interpreted by me (1pt. min.)? @ -Not obtained What testing was considered but not performed? (CT, X-rays, U/S, labs)? Why? @ -None What meds were considered but not given? Why? @ -None Did you discuss the management of the patient with other professionals? @ -No Did you reconcile home meds? @ -No Was smoking cessation discussed for >3mins.? @ -No Was critical care preformed (if so, how long)? @ -No Were there social determinants of health that impacted care today? How? (Home lessness, low income, unemployed, alcoholism, drug addiction, transportation, low edu. Level, literacy, decrease access to med. care, prison, rehab)? @ -No Was there de-escalation of care discussed even if they declined? (Discuss DNR or withdrawal of care, Hospice)? @ -No What co-morbidities impacted this encounter? (DM, HTN, Smoking, COPD, CAD, Ca ncer, CVA, Hep., AIDS, mental health diagnosis, sleep apnea, morbid obesity)? @ -CAD, HLD, HTN Was patient admitted / discharged? @ -Discharged. Lab work unremarkable. Troponin negative. He has no elevation in lactic acid and there is no leukocytosis. Abdominal exam was benign. 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 He is scheduled for a repeat stress test and echocardiogram in the next couple of days. However, the patient did not feel like his symptoms felt similar to cardiac issues he has had in the past. The burning sensation would be more so consistent with something like a gastritis, GERD, or peptic ulcer. He was given a GI cocktail and pantoprazole in the emergency department and symptoms resolved almost immediately. This would also make it more likely to be GI related. Advised that we can start him on a daily medication like pantoprazole which the patient was in agreement with. This was prescribed in addition to Maalox. Advised that the Maalox is to be used only when needed as the pantoprazole may not become effective right away. Also advised to avoid spicy/acidic foods and avoid eating before bed. Information for follow-up with GI provided as well. Patient discharged home in stable condition. Case discussed with ED attending Dr. Go. Return precautions reviewed in depth, the patient is instructed to return to the emergency department with any new, worsening, or concerning symptoms. Patient verbalized understanding. Undiagnosed new problem with uncertain prognosis? @ -None Drug Therapy requiring intensive monitoring for toxicity (Heparin, Nitro, Insulin, Cardizem)? @ -None Were any procedures done? @ -None Diagnosis/symptom? @ -Esophageal reflux, gastritis Acute, or Chronic, or Acute on Chronic? @ -Acute Uncomplicated (without systemic symptoms) or Complicated (systemic symptoms)? @ -Uncomplicated Side effects of treatment? @ -None Exacerbation, Progression, or Severe Exacerbation] @ -Not applicable Poses a threat to life or bodily function? @ -No - Lab Data Result diagrams: 11/19/24 20:17 11/19/24 20:17 Lab Results 11/19/24 11/19/24 11/19/24 Range/Units 20: 20: 20:17 WBC 7.39 (4.50-10.00) 10*3/uL RBC 4.19 L (4.40-5.60) 10*6/uL Hgb 13.1 (13.0-17.0) g/dL Hct 39.0 L (39.6-50.0) % MCV 93.1 (80.0-97.0) fL MCH 31.3 (27.0-32.0) pg MCHC 33.6 (32.0-37.0) g/dL Plt Count 193 (140-440) 10*3/uL MPV 10.0 (9.5-12.2) fL Immature Gran % (Auto) 0.1 % Neutrophils % 69.5 % Lymphocytes % 21.7 % Monocytes % 7.7 % Eosinophils % 0.5 % Basophils % 0.5 % Immature Gran # 0.01 (0.00-0.04) 10*3/uL Neutrophils # 5.13 (1.80-7.70) 10*3/uL Lymphocytes # 1.60 (0.90-5.00) 10*3/uL Monocytes # 0.57 (0.20-1.00) 10*3/uL Eosinophils # 0.04 (0.04-0.35) 10*3/uL Basophils # 0.04 (0.00-0.10) 10*3/uL Sodium 140 (137-145) mmol/L Potassium 3.8 (3.5-5.1) mmol/L Chloride 106 (98-107) mmol/L Carbon Dioxide 27 (22-30) mmol/L Anion Gap 7 mmol/L BUN 19 (9-20) mg/dL Creatinine 1.08 (0.66-1.25) mg/dL Est GFR (CKD-EPI)AfAm 78 (>60 ml/min/1.73 sqM) Est GFR (CKD-EPI)NonAf 68 (>60 ml/min/1.73 sqM) Glucose 102 H (74-99) mg/dL Plasma Lactic Acid Robin 1.0 (0.7-2.0) mmol/L Calcium 9.2 (8.4-10.2) mg/dL Magnesium 2.1 (1.6-2.3) mg/dL Total Bilirubin 0.4 (0.2-1.3) mg/dL AST 25 (17-59) U/L ALT 22 (4-49) U/L Alkaline Phosphatase 77 (38-126) U/L Troponin I (0.000-0.034) ng/mL Total Protein 6.2 L (6.3-8.2) g/dL Albumin 3.8 (3.5-5.0) g/dL Amylase 46 (30-110) U/L Lipase 111 (23-300) U/L // Range/Units 20:17 WBC (4.50-10.00) 10*3/uL RBC (4.40-5.60) 10*6/uL Hgb (13.0-17.0) g/dL Hct (39.6-50.0) % MCV (80.0-97.0) fL MCH (27.0-32.0) pg MCHC (32.0-37.0) g/dL Plt Count (140-440) 10*3/uL MPV (9.5-12.2) fL Immature Gran % (Auto) % Neutrophils % % Lymphocytes % % Monocytes % % Eosinophils % % Basophils % % Immature Gran # (0.00-0.04) 10*3/uL Neutrophils # (1.80-7.70) 10*3/uL Lymphocytes # (0.90-5.00) 10*3/uL Monocytes # (0.20-1.00) 10*3/uL Eosinophils # (0.04-0.35) 10*3/uL Basophils # (0.00-0.10) 10*3/uL Sodium (137-145) mmol/L Potassium (3.5-5.1) mmol/L Chloride (98-107) mmol/L Carbon Dioxide (22-30) mmol/L Anion Gap mmol/L BUN (9-20) mg/dL Creatinine (0.66-1.25) mg/dL Est GFR (CKD-EPI)AfAm (>60 ml/min/1.73 sqM) Est GFR (CKD-EPI)NonAf (>60 ml/min/1.73 sqM) Glucose (74-99) mg/dL Plasma Lactic Acid Robin (0.7-2.0) mmol/L Calcium (8.4-10.2) mg/dL Magnesium (1.6-2.3) mg/dL Total Bilirubin (0.2-1.3) mg/dL AST (17-59) U/L ALT (4-49) U/L Alkaline Phosphatase (38-126) U/L Troponin I <0.012 (0.000-0.034) ng/mL Total Protein (6.3-8.2) g/dL Albumin (3.5-5.0) g/dL Amylase (30-110) U/L Lipase (23-300) U/L - Radiology Data Radiology results: report reviewed, image reviewed Disposition Clinical Impression: GERD (gastroesophageal reflux disease), Gastritis Disposition: HOME SELF-CARE Instructions (If sedation given, give patient instructions): Peptic Ulcer (ED), Diet for Stomach Ulcers and Gastritis (ED), GERD (Gastroesophageal Reflux Disease) (ED) Additional Instructions: Return to the emergency department with any new, worsening, or concerning symptoms. Begin taking the pantoprazole and famotidine daily. Try to take this 30 to 60 minutes before eating or taking other medication for the best effect. Take the Maalox as needed for feelings of burning. Consider following up with the wood grainer as listed below for further evaluation of your symptoms, especially if they persist. Follow-up with your primary care provider for reevaluation as well. Prescriptions: Famotidine 40 mg PO DAILY #30 tablet Mag Hydrox/Al Hydrox/Simeth [Maalox] 10 - 20 ml PO QID PRN #473 ml PRN Reason: Heartburn Pantoprazole Sodium 40 mg PO DAILY #30 tab Is patient prescribed a controlled substance at d/c from ED?: No Referrals: David Rizzo DO [Primary Care Provider] - 1-2 days Gail Desai MD [STAFF PHYSICIAN] - 1-2 days Time of Disposition: 21:09
[2024-11-19 20:35] LABS: ALT 22 U/L (4-49); AST 25 U/L (17-59); African American GFR (CKD) 78 (>60 ml/min/1.73 sqM); Albumin 3.8 g/dL (3.5-5.0); Alkaline Phosphatase 77 U/L (38-126); Amylase 46 U/L (30-110); Anion Gap 7 mmol/L; Blood Urea Nitrogen 19 mg/dL (9-20); Calcium 9.2 mg/dL (8.4-10.2); Carbon Dioxide 27 mmol/L (22-30); Chloride 106 mmol/L (98-107); Glucose 102 mg/dL (74-99); Lipase 111 U/L (23-300); Magnesium 2.1 mg/dL (1.6-2.3); Non-African American GFR(CKD) 68 (>60 ml/min/1.73 sqM); Potassium 3.8 mmol/L (3.5-5.1); Sodium 140 mmol/L (137-145); Total Protein 6.2 g/dL (6.3-8.2)
--- NOTE | 2024-11-19 20:36 | XR ---
EXAMINATION TYPE: XR chest 2V DATE OF EXAM: 11/19/2024 8:32 PM COMPARISON: Chest radiographs from 11/15/2024 TECHNIQUE: XR chest 2V Frontal and lateral views of the chest. CLINICAL INDICATION:Male, 74 years old with history of abdominal pain; FINDINGS: Lungs/Pleura: There is no evidence of pleural effusion, focal consolidation, or pneumothorax. Pulmonary vascularity: Unremarkable. Heart/mediastinum: Cardiomediastinal silhouette is unremarkable. Musculoskeletal: Multiple level degenerative disc disease changes seen throughout the spine. IMPRESSION: No acute cardiopulmonary disease/process. [facility], , 11/19/2024 8:34 PM
[2024-11-19 21:24] VITALS: BP 123/82; PULSE 60; TEMP 98
== END 2024-11-19 21:23 | disposition home or self-care (01) ==
LOC: EC 19:36
DX: K29.70 Gastritis, unspecified, without bleeding (principal); K21.9 Gastro-esophageal reflux disease without esophagitis; I25.10 Atherosclerotic heart disease of native coronary artery without angina pectoris; E78.5 Hyperlipidemia, unspecified; I10 Essential (primary) hypertension; F17.200 Nicotine dependence, unspecified, uncomplicated
CPT/HCPCS: 36415; 80053; 82150; 83605; 83690; 83735; 84484; 85025; 71046; 99285; 96374; 96375; 96361; J2470; J1308